=== PATIENT | female | born 1975 | race Caucasian/White ===

== ENCOUNTER 2024-08-15 09:44 | Emergency (ER) | payer MEDICAID ==
[~2024-08-15] VITALS: Ht 165.1 cm; Wt 54.5 kg
[2024-08-15 11:06] LABS: BASOPHILS # (AUTO) 0.1 X10'3 (0-0.2); EOSINOPHILS # (AUTO) 0.1 X10'3 (0-0.9); EOSINOPHILS % (AUTO) 1.1 % (0-6); HEMATOCRIT 28.2 % (35.0-45.0); HEMOGLOBIN 9.2 g/dl (12.0-16.0); LYMPHOCYTES # (AUTO) 1.5 X10'3 (1.1-4.8); LYMPHOCYTES % (AUTO) 18.4 % (21-51); MEAN CORPUSCULAR HEMOGLOBIN 32.3 PG (27.0-31.0); MEAN CORPUSCULAR HGB CONC 32.7 g/dL (33.0-36.5); MEAN CORPUSCULAR VOLUME 98.8 FL (78-98); MEAN PLATELET VOLUME 8.9 FL (7.4-10.4); MONOCYTES # (AUTO) 0.7 X10'3 (0-0.9); MONOCYTES % (AUTO) 8.7 % (2-12); NEUTROPHILS # (AUTO) 5.7 X10'3 (1.8-7.7); NEUTROPHILS % (AUTO) 70.8 % (42-75); PLATELET COUNT 285 X10'3 (140-440); RED BLOOD COUNT 2.85 X10'6 (4.20-5.60); RED CELL DISTRIBUTION WIDTH 16.6 % (11.5-14.5); WHITE BLOOD COUNT 8.1 X10'3 (4.5-11.0)
[2024-08-15 11:21] LABS: ALANINE AMINOTRANSFERASE 10 U/L (12-78); ALBUMIN 1.9 G/DL (3.4-5.0); ALBUMIN/GLOBULIN RATIO 0.4 (1.1-1.5); ALKALINE PHOSPHATASE 300 IU/L (46-116); ANION GAP 10 (8-16); ASPARTATE AMINO TRANSFERASE 67 U/L (10-37); BILIRUBIN,TOTAL 2.1 MG/DL (0.1-1.0); BLOOD UREA NITROGEN 5 MG/DL (7-18); BUN/CREATININE RATIO 6.4 (10.0-20.0); CALCIUM 7.9 MG/DL (8.5-10.1); CHLORIDE 105 MMOL/L (99-107); CREATININE 0.78 MG/DL (0.40-0.90); GLUCOSE 131 MG/DL (70-104); SODIUM 138 MMOL/L (135-145); TOTAL CARBON DIOXIDE 23.2 MMOL/L (24-32); TOTAL PROTEIN 6.8 G/DL (6.4-8.2); eCRCL 76 ML/MIN; eGFR 79 ML/MIN
[2024-08-15 11:27] LABS: POTASSIUM 2.9 MMOL/L (3.5-5.1)
[2024-08-15] MEDS: morphine 4 MG/ML inj SYRINge IV ONE (11:46)
[2024-08-15] MEDS: LIDOcaine 1% 30ml preserv. free vial SQ STA (13:05)
[2024-08-15 15:05] VITALS: BP 101/78; PULSE 107; RESP 14; TEMP 98; O2SAT 97
== END 2024-08-15 15:08 | disposition home or self-care (01) ==
LOC: ER 09:44
DX: R18.8 Other ascites (principal)
CPT/HCPCS: 36415; 49083; 80053; 82140; 85025; 96374; 99285; J2270

== ENCOUNTER 2024-08-18 12:10 | Emergency (ER) | payer MEDICAID ==
[2024-08-18 12:54] LABS: BASOPHILS # (AUTO) 0.1 X10'3 (0-0.2); BASOPHILS % (AUTO) 1.1 % (0-1); EOSINOPHILS # (AUTO) 0.1 X10'3 (0-0.9); EOSINOPHILS % (AUTO) 0.9 % (0-6); HEMATOCRIT 31.4 % (35.0-45.0); HEMOGLOBIN 10.2 g/dl (12.0-16.0); LYMPHOCYTES # (AUTO) 1.6 X10'3 (1.1-4.8); LYMPHOCYTES % (AUTO) 14.8 % (21-51); MEAN CORPUSCULAR HEMOGLOBIN 32.1 PG (27.0-31.0); MEAN CORPUSCULAR HGB CONC 32.6 g/dL (33.0-36.5); MEAN CORPUSCULAR VOLUME 98.5 FL (78-98); MEAN PLATELET VOLUME 8.8 FL (7.4-10.4); MONOCYTES # (AUTO) 0.9 X10'3 (0-0.9); MONOCYTES % (AUTO) 8.1 % (2-12); NEUTROPHILS # (AUTO) 8.2 X10'3 (1.8-7.7); NEUTROPHILS % (AUTO) 75.1 % (42-75); PLATELET COUNT 307 X10'3 (140-440); RED BLOOD COUNT 3.19 X10'6 (4.20-5.60); RED CELL DISTRIBUTION WIDTH 16.2 % (11.5-14.5); WHITE BLOOD COUNT 10.9 X10'3 (4.5-11.0)
[2024-08-18 13:13] LABS: ALANINE AMINOTRANSFERASE 17 U/L (12-78); ALBUMIN 2.1 G/DL (3.4-5.0); ALBUMIN/GLOBULIN RATIO 0.4 (1.1-1.5); ALKALINE PHOSPHATASE 357 IU/L (46-116); ANION GAP 10 (8-16); ASPARTATE AMINO TRANSFERASE 72 U/L (10-37); BILIRUBIN,TOTAL 2.4 MG/DL (0.1-1.0); BLOOD UREA NITROGEN 5 MG/DL (7-18); BUN/CREATININE RATIO 6.8 (10.0-20.0); CALCIUM 8.5 MG/DL (8.5-10.1); CHLORIDE 102 MMOL/L (99-107); CREATININE 0.73 MG/DL (0.40-0.90); ETHANOL < 10 MG/DL (<10); GLUCOSE 163 MG/DL (70-104); LIPASE 49 U/L (16-77); SODIUM 136 MMOL/L (135-145); TOTAL CARBON DIOXIDE 24.5 MMOL/L (24-32); TOTAL PROTEIN 7.4 G/DL (6.4-8.2); eGFR 85 ML/MIN
[2024-08-18 13:39] LABS: POTASSIUM 3.8 MMOL/L (3.5-5.1)
[2024-08-18] MEDS: LIDOcaine 1%/PF 5ML 10 MG/ML VIAL SQ ONE (13:52)
[2024-08-18] MEDS: LIDOcaine 1% 30ml preserv. free vial SQ STA (13:52)
[2024-08-18] MEDS: HYDROcodone/acetaminophen 5mg/325mg tablet PO ONE (14:36)
[2024-08-18 14:59] LABS: BILIRUBIN,URINE MODERATE (Neg); CLARITY,URINE CLEAR (Clear); COLOR,URINE AMBER (Yellow); GLUCOSE, URINE NEGATIVE (Neg); KETONES,URINE TRACE mg/dl (Neg); LEUKOCYTE ESTERASE ,URINE NEGATIVE (Neg); OCCULT BLOOD,URINE NEGATIVE (Neg); PROTEIN,URINE 30 mg/dl (Neg)
[2024-08-18 15:09] LABS: URINE AMPHETAMINE SCREEN POSITIVE (Neg); URINE BARBITUATE SCREEN NEGATIVE (Neg); URINE BENZODIAZEPINES SCREEN NEGATIVE (Neg); URINE CANNABINOID SCREEN NEGATIVE (Neg); URINE COCAINE SCREEN NEGATIVE (Neg); URINE METHADONE SCREEN NEGATIVE (Neg); URINE OPIATE SCREEN NEGATIVE (Neg); URINE PHENCYCLIDINE SCREEN NEGATIVE (Neg)
[2024-08-18 15:10] LABS: UA COLLECTION TYPE STRAIGHT CATH
[2024-08-18 15:11] LABS: NITRITES, URINE NEGATIVE (Neg)
[2024-08-18 15:13] LABS: BACTERIA,URINE FEW /HPF (Neg); RENAL CELLS, URINE FEW /HPF; SQUAMOUS EPITHELIAL CELL,UR FEW /LPF (FEW); TRANSITIONAL EPI CELLS,URINE FEW /HPF
[2024-08-18 15:48] LABS: GLUCOSE,BODY FLUID 167 MG/DL
[2024-08-18 16:12] LABS: BF RBC COUNT 249 /CU MM; BF WBC COUNT 105 /CU MM (0-1000); BFAPPEAR CLEAR; BFCOLOR YELLOW; BFSOURCE ASCITES FLD; BFVOLUME 16.5 ML
[2024-08-18 16:13] LABS: BF MESOTHELIAL CELLS MODERATE; LYMPHOCYTES,BODY FLUID 57 %; MONOCYTES,BODY FLUID 39 %; NEUTROPHILS,BODY FLUID 4 %
[2024-08-18 16:37] LABS: TOTAL PROTEIN,BODY FLUID < 2.0 G/DL
[2024-08-18] MEDS ORDERED: FURO-150 PO (16:38)
[2024-08-18] MEDS ORDERED: LACT10SO78 PO (16:38)
[2024-08-18] MEDS ORDERED: SPIR25TA5 PO (16:38)
[2024-08-18 17:26] VITALS: BP 103/50; PULSE 116; RESP 16; TEMP 97.2; O2SAT 98
== END 2024-08-18 17:29 | disposition home or self-care (01) ==
LOC: ER 12:11
DX: K70.31 Alcoholic cirrhosis of liver with ascites (principal)
CPT/HCPCS: 36415; 49082; 80053; 80305; 80320; 81001; 82945; 83605; 83690; 84145; 84157; 85025; 87040; 87070; 87088; 89051; 93005; 99285; A6449; C1758

== ENCOUNTER 2024-12-06 11:08 | Emergency (ER) | payer MEDICAID, OTHER ==
[~2024-12-06] VITALS: Ht 165.1 cm; Wt 45.5 kg
[~2024-12-06 11:08] MED LIST: FURO-150 PO; LACT10SO78 PO; SPIR25TA5 PO
[2024-12-06 11:15] VITALS: TEMP 98.3
[2024-12-06] MEDS ORDERED: HYDR-3686 PO (12:16)
[2024-12-06] MEDS ORDERED: GABA-530 PO (12:16)
[2024-12-06] MEDS ORDERED: TRAZ-251 PO (12:16)
[2024-12-06 13:31] LABS: BASOPHILS % (AUTO) 0.9 % (0-1); HEMATOCRIT 27.5 % (35.0-45.0); HEMOGLOBIN 8.7 g/dl (12.0-16.0); LYMPHOCYTES # (AUTO) 1.1 X10'3 (1.1-4.8); LYMPHOCYTES % (AUTO) 23.5 % (21-51); MEAN CORPUSCULAR HGB CONC 31.6 g/dL (33.0-36.5); MEAN CORPUSCULAR VOLUME 79.2 FL (78-98); MONOCYTES # (AUTO) 0.4 X10'3 (0-0.9); MONOCYTES % (AUTO) 9.1 % (2-12); NEUTROPHILS % (AUTO) 65.5 % (42-75); PLATELET COUNT 126 X10'3 (140-440); RED BLOOD COUNT 3.47 X10'6 (4.20-5.60); RED CELL DISTRIBUTION WIDTH 17.1 % (11.5-14.5); WHITE BLOOD COUNT 4.6 X10'3 (4.5-11.0)
[2024-12-06 13:49] LABS: ALANINE AMINOTRANSFERASE 19 U/L (12-78); ALBUMIN 2.7 G/DL (3.4-5.0); ALBUMIN/GLOBULIN RATIO 0.6 (1.1-1.5); ALKALINE PHOSPHATASE 185 IU/L (46-116); ANION GAP 9 (8-16); ASPARTATE AMINO TRANSFERASE 27 U/L (10-37); BILIRUBIN,TOTAL 0.8 MG/DL (0.1-1.0); BLOOD UREA NITROGEN 7 MG/DL (7-18); BUN/CREATININE RATIO 9.3 (10.0-20.0); CALCIUM 8.4 MG/DL (8.5-10.1); CHLORIDE 95 MMOL/L (99-107); CREATININE 0.75 MG/DL (0.40-0.90); LIPASE 86 U/L (16-77); POTASSIUM 4.2 MMOL/L (3.5-5.1); SODIUM 130 MMOL/L (135-145); TOTAL CARBON DIOXIDE 25.8 MMOL/L (24-32); TOTAL PROTEIN 7.1 G/DL (6.4-8.2); eCRCL 66 ML/MIN; eGFR 82 ML/MIN
[2024-12-06 13:51] LABS: GLUCOSE 594 MG/DL (70-104)
[2024-12-06 14:03] LABS: ANISOCYTOSIS 1+; HYPOCHROMASIA 1+; MICROCYTOSIS 1+; PLATELET ESTIMATE DECREASED
[2024-12-06 14:07] LABS: BILIRUBIN,URINE NEGATIVE (Neg); CLARITY,URINE CLEAR (Clear); COLOR,URINE YELLOW (Yellow); GLUCOSE, URINE >=1000 mg/dl (Neg); KETONES,URINE NEGATIVE (Neg); LEUKOCYTE ESTERASE ,URINE NEGATIVE (Neg); NITRITES, URINE NEGATIVE (Neg); OCCULT BLOOD,URINE NEGATIVE (Neg); PROTEIN,URINE NEGATIVE (Neg); UROBILINOGEN,URINE 0.2 E.U/dL (0.2-1.0)
[2024-12-06 14:11] LABS: UA COLLECTION TYPE CLN CATCH MIDSTREAM; URINE HCG NEGATIVE (NEG)
[2024-12-06 14:17] LABS: BACTERIA,URINE FEW /HPF (Neg); RENAL CELLS, URINE FEW /HPF; SQUAMOUS EPITHELIAL CELL,UR FEW /LPF (FEW); TRANSITIONAL EPI CELLS,URINE FEW /HPF
[2024-12-06 14:18] LABS: YEAST MODERATE /HPF (NEGATIVE)
[2024-12-06] MEDS ORDERED: iohexol 300mg/ml 100ml inj. ONE (14:18)
[2024-12-06 18:02] VITALS: BP 119/77; PULSE 83; RESP 16; O2SAT 95
== END 2024-12-06 18:04 | disposition home or self-care (01) ==
LOC: ER 11:09
DX: R10.84 Generalized abdominal pain (principal); R73.9 Hyperglycemia, unspecified
CPT/HCPCS: 36415; 74177; 80053; 81001; 81025; 82948; 83690; 85008; 85025; 87088; 99285; J7030; Q9967

== ENCOUNTER 2025-01-25 09:01 | Emergency (ER) | payer MEDICAID ==
[~2025-01-25] VITALS: Ht 167.6 cm; Wt 55.0 kg
[~2025-01-25 09:01] MED LIST changes: +GABA-530 PO; +HYDR-3686 PO; +TRAZ-251 PO
--- NOTE | 2025-01-25 10:23 | Physician Documentation ---
History of Present Illness Chief Complaint: Abdominal Pain Stated Complaint: ABD PAIN Time Seen by MD: 09:43 Primary Medical Doctor: JEROME Mode of Arrival: EMS HPI 49-year-old female presenting with abdominal pain for the past week. Patient states that the pain has gradually been worsening. It is now very severe. Pain is centered around her umbilicus and radiates diffusely. She states that she feels like her stomach has become slightly swollen as well and any type of touch to the stomach is very painful. Additionally she states she has been nauseated and has vomited on several times producing nonbloody emesis. She has also had several bouts of nonbloody diarrhea. 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 She has a history of methamphetamine use as well but states that she also quit that three months ago. She denies any fever, chills or any other associated symptoms. She reports that she had recently a bout of intra- abdominal bleeding where she was hospitalized and then sent to a rehab facility. Medication Reconciliation Allergies: Coded Allergies: No Known Allergies (Unverified , 01/25/25) Scheduled Furosemide (Lasix), 20 MG PO DAILY Gabapentin (Gabapentin), 1 CAP PO TID, (Reported) Lactulose (Lactulose), 30 ML PO Q12H Spironolactone (Spironolactone), 25 MG PO DAILY Trazodone HCl (Trazodone HCl), 1 TAB PO HS, (Reported) Scheduled PRN Hydroxyzine Hcl* (Atarax*), 1 TAB PO TID PRN for anxiety, (Reported) Past Medical History Past Medical History: Cirrohsis Review of Systems All Other Systems at this time: Reviewed and Negative Physical Exam Vital Signs: Temperature: 98.0, Source: Oral, Heart Rate: 84, Respiratory Rate: 10, BP: 106/76, Pulse Oximetry: 100, Weight: 55.000 Oxygen Flow Rate: 0 Physical Exam I have reviewed the triage vitals. CONST: Well developed and well nourished. In no acute distress HENT: Head Atraumatic EYES: Pupils are equal, round and reactive to light. Normal conjunctiva NECK: Normal range of motion. Supple. CARDIO: Normal rate and regular rhythm. No murmurs, rubs, or gallops. S1, S2. PULM/CHEST: No respiratory distress. Lungs clear to auscultation. No wheeze ABD: Soft, diffusely tender to palpation, positive guarding, positive rebound tenderness. : Exam deferred MSK: No edema. No deformity. NEURO: Alert and oriented to person, place and time. Moving all extremities SKIN: Warm and dry. PSYCH: Normal mood and affect. Good eye contact. Progress Results/Orders Results/Orders Orders - CHIQUIS CHILD MD Electrocardiogram (01/25/25 10:17) Type And Screen (01/25/25 10:17) Cbc/Diff (01/25/25 10:17) CK (01/25/25 10:17) Lipase (01/25/25 10:17) Pt Inr (01/25/25 10:17) PTT (01/25/25 10:17) Culture Blood (01/25/25 10:17) Urinalysis, Cult If Indicated (01/25/25 10:17) Chest,Single View (01/25/25 10:17) PBNP (01/25/25 10:17) MG (01/25/25 10:17) Normal Saline (01/25/25 10:20) Vital Signs 01/25/25 01/25/25 01/25/25 01/25/25 09:03 09:12 09:22 10:11 Temp 98.0 Pulse 82 81 84 Resp 12 14 14 10 B/P (MAP) 106/74 112/73 (86) 106/76 (86) Pulse Ox 99 100 100 O2 Flow Rate 0 0 0 EKG/XRAY/CT/US/VASC/MRI EKG : Additional Comment EKG interpreted by KE Child shows normal sinus rhythm at a rate of 74, normal axis, no VA intervals. No ischemia Chest X-Ray : Additional Comments EXAM: DI CHEST,SINGLE VIEW Indication: abd pain Technique: Single frontal view of the chest was obtained Comparison: None FINDINGS: Lines and Tubes: None Lungs: No focal consolidation. Pleura: No effusion. No pneumothorax. Cardiomediastinal contours: Unremarkable Bones: No acute osseous abnormality. IMPRESSION: No acute cardiopulmonary disease. : Impression CT ABDOMEN AND PELVIS WITHOUT CONTRAST CLINICAL HISTORY: diffuse abd pain TECHNIQUE: Multiple contiguous axial images of the abdomen and pelvis without intravenous contrast. The images were reformatted degenerate coronal and sagittal reconstructions. All CT scans at this medical facility are performed using dose modulation t echniques as appropriate to a performed exam including the following:Automated exposure control was utilized; adjustment of the MA and/or KV according to patient size; and use of iterative reconstruction technique. Radiation Dose Information: CT Dose: CTDI volume is 7 mGy. Dose-length product is 346 mGy*cm Comparison: CT CT ABDOMEN PELVIS W/ IV CONTRAST on DOS: 12/06/24 FINDINGS: Evaluation of the abdomen and pelvis is limited without intravenous contrast. The liver again demonstrates nodular surface contour suggestive of hepatic cirrhosis. There is no discrete hepatic lesion or masslike area identified on the current noncontrast CT. There are again paraesophageal and perigastric varices. There is perihepatic and perisplenic ascites. There is a stable mildly prominent size spleen. There are multiple scattered calcifications throughout the pancreas with pancreatic ductal dilatation. The gallbladder, kidneys, and adrenal glands, appear within normal limits. There is no free air. The stomach grossly appears unremarkable. The small and large bowel loops demonstrate normal caliber and distribution. There is moderate amount of stool in the colon. There are diverticula in the distal colon without evidence of acute diverticulitis. A normal appearing appendix is seen in the right lower quadrant abdomen. The abdominal aorta and IVC appear within normal limits. The bladder appears unremarkable for the degree of distention. Uterus is surgically absent.. There is no gross evidence of a pelvic mass. There is small amount of free fluid in the pelvis. Lung bases are clear. There is no acute osseous abnormality. IMPRESSION: 1. The liver again demonstrates cirrhotic morphology. There is no discrete hepatic lesion or masslike area identified on the current noncontrast CT. 2. Redemonstrated are changes of portal hypertension with splenomegaly and paraesophageal and perigastric varices. 3. Stable changes of chronic pancreatitis. 4. Moderate amount of stool in the colon. Departure Disposition: 01 HOME / SELF CARE / HOMELESS Impression: Primary Impression: Cirrhosis of liver Additional Impression: Abdominal pain Condition: Improved Discharge Instructions: Cirrhosis Referrals: NO PRIMARY CARE PROVIDER (PCP) Comments Monitor symptoms for improvement and resolution, Follow up with PCP in the next 2-3 days. Return to the ED with any worsening symptoms CHIQUIS CHILD MD Jan 25, 2025 10:23
--- NOTE | 2025-01-25 10:27 | ELECTROCARDIOGRAPH REPORT ---
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 Santiago Mallory Measurements Intervals [place] Rate: 74 P: 40 AR: 160 QRS: 64 QRSD: 92 T: 41 QT: 401 QTc: 445 Interpretive Statements Sinus rhythm Low voltage, extremity and precordial leads Electronically Signed On 01-25-2025 19:21:[address] Santiago Mallory Please click the below link to view image of tracing.
[2025-01-25] MEDS: normal saline 1000ML IV soln IVB ONE (10:39)
[2025-01-25] MEDS: morphine 4 MG/ML inj SYRINge IV ONE (10:39)
[2025-01-25] MEDS: ondansetron/PF 4mg/2ml inj IV ONE (10:39)
[2025-01-25 10:45] LABS: BILIRUBIN,URINE NEGATIVE (Neg); CLARITY,URINE CLEAR (Clear); COLOR,URINE YELLOW (Yellow); GLUCOSE, URINE >=1000 mg/dl (Neg); KETONES,URINE NEGATIVE (Neg); LEUKOCYTE ESTERASE ,URINE NEGATIVE (Neg); OCCULT BLOOD,URINE NEGATIVE (Neg); PROTEIN,URINE NEGATIVE (Neg); UROBILINOGEN,URINE 0.2 E.U/dL (0.2-1.0)
[2025-01-25 10:56] LABS: NITRITES, URINE NEGATIVE (Neg); UA COLLECTION TYPE CLN CATCH MIDSTREAM
[2025-01-25 10:59] LABS: BACTERIA,URINE FEW /HPF (Neg); MUCUS STRANDS NONE SEEN /LPF (Neg); RBC,URINE NONE SEEN /HPF (0-2); SQUAMOUS EPITHELIAL CELL,UR MODERATE /LPF (FEW); WBC,URINE 0-4 /HPF (0-4)
[2025-01-25 11:10] LABS: BASOPHILS # (AUTO) 0.1 X10'3 (0-0.2); BASOPHILS % (AUTO) 1.2 % (0-1); EOSINOPHILS # (AUTO) 0.1 X10'3 (0-0.9); EOSINOPHILS % (AUTO) 1.7 % (0-6); HEMATOCRIT 31.3 % (35.0-45.0); HEMOGLOBIN 10.3 g/dl (12.0-16.0); LYMPHOCYTES # (AUTO) 1.4 X10'3 (1.1-4.8); LYMPHOCYTES % (AUTO) 34.6 % (21-51); MEAN CORPUSCULAR HEMOGLOBIN 25.4 PG (27.0-31.0); MEAN PLATELET VOLUME 8.5 FL (7.4-10.4); MONOCYTES # (AUTO) 0.4 X10'3 (0-0.9); MONOCYTES % (AUTO) 10.2 % (2-12); NEUTROPHILS # (AUTO) 2.2 X10'3 (1.8-7.7); NEUTROPHILS % (AUTO) 52.3 % (42-75); PLATELET COUNT 132 X10'3 (140-440); RED BLOOD COUNT 4.07 X10'6 (4.20-5.60); RED CELL DISTRIBUTION WIDTH 21.8 % (11.5-14.5); WHITE BLOOD COUNT 4.1 X10'3 (4.5-11.0)
--- NOTE | 2025-01-25 11:32 | RADIOLOGY REPORT ---
EXAM: DI CHEST,SINGLE VIEW Indication: abd pain Technique: Single frontal view of the chest was obtained Comparison: None FINDINGS: Lines and Tubes: None Lungs: No focal consolidation. Pleura: No effusion. No pneumothorax. Cardiomediastinal contours: Unremarkable Bones: No acute osseous abnormality. IMPRESSION: No acute cardiopulmonary disease.
[2025-01-25 11:35] LABS: ANISOCYTOSIS 3+; MICROCYTOSIS 1+; PLATELET ESTIMATE DECREASED
[2025-01-25 11:37] LABS: APTT 30 SECONDS (22-32); INR 1.2 INR; PROTHROMBIN TIME 12.4 SECONDS (9.0-12.0)
--- NOTE | 2025-01-25 11:37 | RADIOLOGY REPORT ---
CT ABDOMEN AND PELVIS WITHOUT CONTRAST CLINICAL HISTORY: diffuse abd pain TECHNIQUE: Multiple contiguous axial images of the abdomen and pelvis without intravenous contrast. T he images were reformatted degenerate coronal and sagittal reconstructions. All CT scans at this medical facility are performed using dose modulation techniques as appropriate t o a performed exam including the following:Automated exposure control was utilized; adjustment of the MA and/or KV according to patient size; and use of iterative reconstruction technique. Radiation Dose Information: CT Dose: CTDI volume is 7 mGy. Dose-length product is 346 mGy*cm Comparison: CT CT ABDOMEN PELVIS W/ IV CONTRAST on DOS: 12/06/24 FINDINGS: Evaluation of the abdomen and pelvis is limited without intravenous contrast. The liver again demonstrates nodular surface contour suggestive of hepatic cirrhosis. There is no dis crete hepatic lesion or masslike area identified on the current noncontrast CT. There are again parae sophageal and perigastric varices. There is perihepatic and perisplenic ascites. There is a stable mildly prominent size spleen. There are multiple scattered calcifications throughou t the pancreas with pancreatic ductal dilatation. The gallbladder, kidneys, and adrenal glands, appear within normal limits. There is no free ai r. The stomach grossly appears unremarkable. The small and large bowel loops demonstrate normal caliber and distribution. There is moderate amount of stool in the colon. There are diverticula in the dista l colon without evidence of acute diverticulitis. A normal appearing appendix is seen in the right lo wer quadrant abdomen. The abdominal aorta and IVC appear within normal limits. The bladder appears unremarkable for the degree of distention. Uterus is surgically absent.. There i s no gross evidence of a pelvic mass. There is small amount of free fluid in the pelvis. Lung bases are clear. There is no acute osseous abnormality. IMPRESSION: 1. The liver again demonstrates cirrhotic morphology. There is no discrete hepatic lesion or masslike area identified on the current noncontrast CT. 2. Redemonstrated are changes of portal hypertension with splenomegaly and paraesophageal and perigas tric varices. 3. Stable changes of chronic pancreatitis. 4. Moderate amount of stool in the colon. HS:Y
[2025-01-25 11:46] LABS: ALANINE AMINOTRANSFERASE 17 U/L (12-78); ALBUMIN 3.3 G/DL (3.4-5.0); ALBUMIN/GLOBULIN RATIO 0.8 (1.1-1.5); ALKALINE PHOSPHATASE 183 IU/L (46-116); ANION GAP 8 (8-16); ASPARTATE AMINO TRANSFERASE 19 U/L (10-37); BILIRUBIN,TOTAL 0.8 MG/DL (0.1-1.0); BLOOD UREA NITROGEN 8 MG/DL (7-18); BUN/CREATININE RATIO 11.8 (10.0-20.0); CALCIUM 9.4 MG/DL (8.5-10.1); CHLORIDE 104 MMOL/L (99-107); CREATINE KINASE 47 U/L (26-192); CREATININE 0.68 MG/DL (0.40-0.90); LIPASE 72 U/L (16-77); MAGNESIUM 1.4 MG/DL (1.5-2.4); POTASSIUM 3.7 MMOL/L (3.5-5.1); PRO BRAIN NATRIURETIC PEPTIDE < 30 PG/ML (0-125); SODIUM 135 MMOL/L (135-145); TOTAL CARBON DIOXIDE 22.8 MMOL/L (24-32); TOTAL PROTEIN 7.4 G/DL (6.4-8.2); eCRCL 88 ML/MIN; eGFR > 90 ML/MIN
[2025-01-25 11:48] LABS: GLUCOSE 431 MG/DL (70-104)
[2025-01-25] MEDS: insulin regular, human 10 units/0.1 ml syringe IV ONE (14:10)
[2025-01-25] MEDS: potassium Cl 20 mEq SR tablet PO STA (14:48)
[2025-01-25] MEDS: normal saline 1000ml 1,000 ML IV ONE (15:43)
[2025-01-25 18:11] VITALS: BP 101/65; PULSE 67; RESP 12; TEMP 98; O2SAT 100
== END 2025-01-25 18:05 | disposition home or self-care (01) ==
LOC: ER 09:01
DX: K74.60 Unspecified cirrhosis of liver (principal)
CPT/HCPCS: 36415; 71045; 74176; 80053; 81001; 82550; 82948; 83605; 83690; 83735; 83880; 84484; 85025; 85610; 85730; 86885; 86900; 86901; 87040; 93005; 96361; 96374; 96375; 99285; J2270; J2405; J7030; 85008

== ENCOUNTER 2025-02-11 12:33 | Emergency (ER) | payer MEDICAID ==
[~2025-02-11] VITALS: Ht 167.6 cm; Wt 72.5 kg
[2025-02-11 12:37] VITALS: TEMP 98.3
[2025-02-11 13:16] LABS: BASOPHILS % (AUTO) 1.3 % (0-1); EOSINOPHILS # (AUTO) 0.1 X10'3 (0-0.9); EOSINOPHILS % (AUTO) 1.4 % (0-6); HEMATOCRIT 31.4 % (35.0-45.0); HEMOGLOBIN 10.3 g/dl (12.0-16.0); LYMPHOCYTES # (AUTO) 0.9 X10'3 (1.1-4.8); LYMPHOCYTES % (AUTO) 23.6 % (21-51); MEAN CORPUSCULAR HEMOGLOBIN 25.3 PG (27.0-31.0); MEAN CORPUSCULAR HGB CONC 32.7 g/dL (33.0-36.5); MEAN CORPUSCULAR VOLUME 77.5 FL (78-98); MEAN PLATELET VOLUME 8.7 FL (7.4-10.4); MONOCYTES # (AUTO) 0.5 X10'3 (0-0.9); MONOCYTES % (AUTO) 13.7 % (2-12); NEUTROPHILS # (AUTO) 2.3 X10'3 (1.8-7.7); PLATELET COUNT 137 X10'3 (140-440); RED BLOOD COUNT 4.06 X10'6 (4.20-5.60); RED CELL DISTRIBUTION WIDTH 20.6 % (11.5-14.5); WHITE BLOOD COUNT 3.8 X10'3 (4.5-11.0)
[2025-02-11 13:22] LABS: BILIRUBIN,URINE NEGATIVE (Neg); CLARITY,URINE CLEAR (Clear); COLOR,URINE YELLOW (Yellow); GLUCOSE, URINE >=1000 mg/dl (Neg); KETONES,URINE NEGATIVE (Neg); LEUKOCYTE ESTERASE ,URINE NEGATIVE (Neg); NITRITES, URINE NEGATIVE (Neg); OCCULT BLOOD,URINE NEGATIVE (Neg); PROTEIN,URINE NEGATIVE (Neg); UROBILINOGEN,URINE 0.2 E.U/dL (0.2-1.0)
[2025-02-11 13:23] LABS: UA COLLECTION TYPE NON-SPECIFIED
[2025-02-11 13:37] LABS: BACTERIA,URINE NONE SEEN /HPF (Neg); MUCUS STRANDS FEW /LPF (Neg); SQUAMOUS EPITHELIAL CELL,UR FEW /LPF (FEW); WBC,URINE 0-4 /HPF (0-4)
[2025-02-11 13:39] LABS: ALANINE AMINOTRANSFERASE 21 U/L (12-78); ALBUMIN 3.3 G/DL (3.4-5.0); ALBUMIN/GLOBULIN RATIO 0.8 (1.1-1.5); ALKALINE PHOSPHATASE 155 IU/L (46-116); ANION GAP 6 (8-16); ASPARTATE AMINO TRANSFERASE 24 U/L (10-37); BILIRUBIN,TOTAL 0.9 MG/DL (0.1-1.0); BLOOD UREA NITROGEN 9 MG/DL (7-18); BUN/CREATININE RATIO 9.7 (10.0-20.0); CALCIUM 8.9 MG/DL (8.5-10.1); CHLORIDE 100 MMOL/L (99-107); CREATININE 0.93 MG/DL (0.40-0.90); SODIUM 133 MMOL/L (135-145); TOTAL PROTEIN 7.3 G/DL (6.4-8.2); eCRCL 69 ML/MIN; eGFR 64 ML/MIN
[2025-02-11 13:41] LABS: ANISOCYTOSIS 3+; HYPOCHROMASIA 1+; MICROCYTOSIS 1+; PLATELET ESTIMATE DECREASED
[2025-02-11 13:42] LABS: ELLIPTOCYTES 1+; GLUCOSE 563 MG/DL (70-104)
--- NOTE | 2025-02-11 15:23 | Physician Documentation ---
History of Present Illness ~ Chief Complaint: Weakness Stated Complaint: HYPERGLYCEMIA Time Seen by MD: 14:16 OK to notify your PCP?: Yes Primary Medical Doctor: JEROME Source: patient Mode of Arrival: EMS Exam Limitations: no limitations HPI 49-year-old female who is here due to right ear pain which worsened over the past few days. She states she has already been seen for this but was not given any antibiotics or pain medication in his requesting some pain medication for this. She states they told her it was wax in her ear but she states she has had problems with infections in her ear all her life and she feels that it is more than just wax in her ear she is concerned there was an infection behind the wax. Patient's denies any fever, chills. Patient also reports ongoing pain in her stomach but states this is unchanged from her baseline. Patient then adds but right now my stomach actually isn't that bad. Patient states all the medications you give me for pain do not work. 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 Medication Reconciliation Allergies: Coded Allergies: No Known Allergies (Unverified , 02/11/25) Scheduled Furosemide (Lasix), 20 MG PO DAILY Gabapentin (Gabapentin), 1 CAP PO TID, (Reported) Lactulose (Lactulose), 30 ML PO Q12H Spironolactone (Spironolactone), 25 MG PO DAILY Trazodone HCl (Trazodone HCl), 1 TAB PO HS, (Reported) Scheduled PRN Hydroxyzine Hcl* (Atarax*), 1 TAB PO TID PRN for anxiety, (Reported) Past Medical History Past Medical History: Cirrohsis Review of Systems All Other Systems at this time: Reviewed and Negative Physical Exam Vital Signs: Temperature: 98.3, Source: Oral, Heart Rate: 75, Respiratory Rate: 20, BP: 109/75, Pulse Oximetry: 98, Weight: 72.500 Oxygen Flow Rate: 0 Physical Exam GENERAL: Alert, no acute distress. HEENT: NCAT, EOMI, PERRL, right ear canal occluded with cerumen surrounding the cerumen I am able to appreciate some erythema of the canal, pain with traction of the pinna reported, no tenderness at mastoid. Numerous missing teeth otherwise normal oropharynx, moist oral mucosa. NECK: Supple, trachea midline. No cervical lymphadenopathy CARDIAC: Regular rate and rhythm, no murmurs, rubs, or gallops. Equal distal pulses. No lower extremity edema, cap refill less than 2 seconds. RESPIRATORY: Equal breath sounds, clear to auscultation bilaterally, no respiratory distress. GASTROINTESTINAL: Positive fluid wave consistent with ascites but no tenderness or peritoneal signs no guarding or rebound. MUSCULOSKELETAL: Normal range of motion, nontender, no swelling. Normal gait. NEUROLOGICAL: Awake, alert, and oriented x 3. SKIN: Warm/dry, no pallor, no rash. PSYCH: Alert and appropriate. Affect congruent with mood. Speech is clear. Good eye contact. Progress Results/Orders Results/Orders Completed Orders - MEHRAN GILBERT Normal Saline 1000ml (Sodium Chloride 10 (02/11/25 15:10) Tramadol Tablet (Ultram Tablet) (02/11/25 15:10) Amoxicillin Capsule (Trimox Capsule) (02/11/25 15:10) Vital Signs 02/11/25 02/11/25 02/11/25 12:37 13:35 15:02 Temp 98.3 Pulse 82 75 Resp 16 20 B/P (MAP) 105/72 109/75 (86) Pulse Ox 100 98 O2 Flow Rate 0 0 Laboratory Tests Test 02/11/25 12:56 02/11/25 13:02 02/11/25 13:07 Glucometer 592 *H Urine Specimen Description Non-specified Urine Color Yellow Urine Clarity Clear Urine pH 6.0 Urine Specific Gilliam <=1.005 Urine Protein Negative Urine Glucose (UA) >=1000 H Urine Ketones Negative Urine Occult Blood Negative Urine Nitrite Negative Urine Bilirubin Negative Urine Urobilinogen 0.2 Urine Leukocyte Esterase Negative Urine RBC 3-10 Urine WBC 0-4 Urine Squamous Epithelial Cells Few Urine Bacteria None seen Urine Mucus Few Volume Urine Centrifuged 10 ml Urine Comment White Blood Count 3.8 L Red Blood Count 4.06 L Hemoglobin 10.3 L Hematocrit 31.4 L Mean Corpuscular Volume 77.5 L Mean Corpuscular Hemoglobin 25.3 L Mean Corpuscular Hemoglobin Concent 32.7 L Red Cell Distribution Width 20.6 H Platelet Count 137 L Mean Platelet Volume 8.7 Neutrophils (%) (Auto) 60.0 Lymphocytes (%) (Auto) 23.6 Monocytes (%) (Auto) 13.7 H Eosinophils (%) (Auto) 1.4 Basophils (%) (Auto) 1.3 H Neutrophils # (Auto) 2.3 Lymphocytes # (Auto) 0.9 L Monocytes # (Auto) 0.5 Eosinophils # (Auto) 0.1 Basophils # (Auto) 0.0 CBC Comment Platelet Estimate Decreased Red Blood Cell Morphology Perf Hypochromasia 1+ Basophilic Stippling Anisocytosis 3+ Microcytosis 1+ Elliptocytes 1+ Sodium Level 133 L Potassium Level 4.0 Chloride Level 100 Carbon Dioxide Level 27.0 Anion Gap 6 L Blood Urea Nitrogen 9 Creatinine 0.93 H Estimated GFR/1.73 m2 64 BUN/Creatinine Ratio 9.7 L Glucose Level 563 *H Calcium Level 8.9 Total Bilirubin 0.9 Aspartate Amino Transf (AST/SGOT) 24 Alanine Aminotransferase (ALT/SGPT) 21 Alkaline Phosphatase 155 H Total Protein 7.3 Albumin 3.3 L Globulin 4.0 Albumin/Globulin Ratio 0.8 L Chemistry Comments Medical Decision Making Differential Dx:Considerations: Include: anemia, CVA, dehydration, dysrhythmia, electrolyte imbalance, encephalopathy, Guillain-Eagle, hypoglycemia, hypotension, hypovolemia, labyrinthitis, Meniere's disease, myasathenia gravis, myocardial infarction, pulmonary embolus, renal failure, respiratory failure, TIA, VBI, vertigo central, vertigo peripheral, vestibular neuronitis Additional Information Labs are at baseline, no peritoneal signs, afebrile. Patient's abdominal pain is improved from her baseline and without red flag signs on exam without wbc or any other concerning findings not consistent with SBP. 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 It does appear that you have possibly an infected ear behind the cerumen which is why covered you with antibiotics today. It is generally not recommended to irrigate cerumen from an ear when you suspect that there is infection behind the cerumen due to causing more pain. Follow up with your primary care provider next week and they can attempt that ear lavage for you after you have been on antibiotics for several days. For your chronic abdominal pain of unclear etiology your labs are all at your baseline no white count your anemia is stable and you report that your abdominal pain was actually a little better thus we did not investigate this further. For this chronic abdominal pain this needs to be managed by your primary care provider, but if you have any new urgent concerns or complaints return to the ER. Referrals: NO PRIMARY CARE PROVIDER (PCP) Prescriptions Tramadol HCl (Tramadol HCl) 50 Mg Tablet 1 TAB PO TID PRN PRN for pain for 2 Days, #6 TAB dx: ear pain otitis media H92.09 Prov: MEHRAN GILBERT 02/11/25 Amoxicillin Trihydrate* (Amoxicillin*) 500 Mg Capsule 1 CAP PO Q8H for 7 Days, #21 CAP Prov: MEHRAN GILBERT 02/11/25 Education Educated: Patient Educated regarding: diagnosis, treatment, need for follow up Signature Scribe Signature: x Attestation: MEHRAN Parrish February 11, 2025 15:23
[2025-02-11] MEDS ORDERED: AMOX500C2 PO (15:25)
[2025-02-11] MEDS ORDERED: TRAM50TA2 PO (15:25)
[2025-02-11] MEDS: normal saline 1000ML IV soln IVB ONE (15:40)
[2025-02-11] MEDS: traMADol 50MG tablet PO ONE (15:40)
[2025-02-11] MEDS: amoxicillin 250mg capsule PO ONE (15:41)
[2025-02-11 15:46] VITALS: BP 110/75; PULSE 77; RESP 18; O2SAT 99
== END 2025-02-11 16:43 | disposition home or self-care (01) ==
LOC: ER 12:34
DX: K70.31 Alcoholic cirrhosis of liver with ascites (principal); H66.91 Otitis media, unspecified, right ear; H61.21 Impacted cerumen, right ear; Z79.899 Other long term (current) drug therapy
CPT/HCPCS: 36415; 80053; 81001; 82948; 85008; 85025; 96360; 99284; J7030; 96361

== ENCOUNTER 2025-03-05 12:08 | Inpatient (IN) | payer MEDICAID ==
[~2025-03-05] VITALS: Ht 167.6 cm; Wt 48.2 kg
--- NOTE | 2025-03-05 12:55 | RADIOLOGY REPORT ---
EXAM: DI CHEST,SINGLE VIEW HISTORY: FEVER COMPARISON: DI CHEST,SINGLE VIEW on DOS: 01/25/25 TECHNIQUE: Portable upright AP view of the chest was performed. FINDINGS: No pneumothorax, consolidative infiltrates, or pulmonary edema. The heart is not enlarged. No fractur es are identified about the bony thorax. IMPRESSION: No acute intrathoracic process.
[2025-03-05 13:40] LABS: BASOPHILS % (AUTO) 0.8 % (0-1); EOSINOPHILS % (AUTO) 0.1 % (0-6); HEMATOCRIT 36.7 % (35.0-45.0); HEMOGLOBIN 12.1 g/dl (12.0-16.0); LYMPHOCYTES # (AUTO) 0.6 X10'3 (1.1-4.8); LYMPHOCYTES % (AUTO) 10.4 % (21-51); MEAN CORPUSCULAR HEMOGLOBIN 25.8 PG (27.0-31.0); MEAN CORPUSCULAR VOLUME 78.2 FL (78-98); MEAN PLATELET VOLUME 9.4 FL (7.4-10.4); MONOCYTES # (AUTO) 0.3 X10'3 (0-0.9); MONOCYTES % (AUTO) 5.6 % (2-12); NEUTROPHILS # (AUTO) 4.6 X10'3 (1.8-7.7); NEUTROPHILS % (AUTO) 83.1 % (42-75); PLATELET COUNT 121 X10'3 (140-440); RED BLOOD COUNT 4.69 X10'6 (4.20-5.60); RED CELL DISTRIBUTION WIDTH 18.4 % (11.5-14.5); WHITE BLOOD COUNT 5.5 X10'3 (4.5-11.0)
[2025-03-05] MEDS: ondansetron/PF 4mg/2ml inj IV ONE (13:44)
[2025-03-05] MEDS: normal saline 1000ml 1,000 ML IV ONE (13:44)
[2025-03-05] MEDS: acetaminophen 325mg tablet PO ONE (13:44)
[2025-03-05] MEDS: morphine 2 MG/ML inj. syringe IV ONE (13:44)
[2025-03-05 13:51] LABS: ALBUMIN 3.2 G/DL (3.4-5.0); ANION GAP 12 (8-16); BLOOD UREA NITROGEN 7 MG/DL (7-18); BUN/CREATININE RATIO 6.8 (10.0-20.0); CHLORIDE 99 MMOL/L (99-107); CREATININE 1.03 MG/DL (0.40-0.90); GLUCOSE 339 MG/DL (70-104); POTASSIUM 3.9 MMOL/L (3.5-5.1); SODIUM 134 MMOL/L (135-145); TOTAL CARBON DIOXIDE 23.5 MMOL/L (24-32); eCRCL 51 ML/MIN; eGFR 57 ML/MIN
--- NOTE | 2025-03-05 14:54 | Physician Documentation ---
History of Present Illness ~ General Chief Complaint: General Stated Complaint: N/V Time Seen by MD: 14:52 OK to notify your PCP?: Yes Primary Medical Doctor: JEROME Source: patient, RN/MD, EMS, RN notes reviewed, EMS notes reviewed, old records Mode of Arrival: EMS Exam Limitations: no limitations History of Present Illness Initial Comments 49 year old female with history of cirrhosis presents to the emergency department for complaints of abdominal pain. She states that she has been vomiting and experiencing diarrhea that began last night. She states she was recently exposed to her grandson who has been sick recently. Of note patient sees Dr. Ramirez who follows her primary care and she sees a liver specialist in [facility]. She states she has been sober for six month s. Patient denies any other associated symptoms at this time. Patient denies any other alleviating or exacerbating factors. Medication Reconciliation Allergies: Coded Allergies: No Known Allergies (Unverified , 03/05/25) Scheduled Furosemide (Lasix), 20 MG PO DAILY Gabapentin (Gabapentin), 1 CAP PO TID, (Reported) Lactulose (Lactulose), 30 ML PO Q12H Spironolactone (Spironolactone), 25 MG PO DAILY Trazodone HCl (Trazodone HCl), 1 TAB PO HS, (Reported) Scheduled PRN Hydroxyzine Hcl* (Atarax*), 1 TAB PO TID PRN for anxiety, (Reported) Past Medical History Past Medical History: Cirrohsis Review of Systems All Other Systems at this time: Reviewed and Negative ROS As stated above in the HPI, otherwise all systems are reviewed and negative. Physical Exam Physical Exam Vital Signs: RN Vital Signs have been reviewed: Yes, Temperature: 100.2, Source: Oral, Heart Rate: 107, Respiratory Rate: 13, BP: 102/64, Pulse Oximetry: 97, Weight: 48.180 Oxygen Flow Rate: 0 Pulse Oximetry Reflects: adequate oxygenation Physical Exam General: The patient is well developed, well nourished, nontoxic appearing and is in no acute distress. Skin: [place], warm and dry with no rashes. HEENT: Head was normocephalic and atraumatic. Eyes - pupils equal, round, reactive to light and accommodation. Extraocular movements were intact. C onjunctivae were nonicteric. Ears - bilateral tympanic membranes were normal. The mouth and oropharynx were clear with moist mucous membranes. There were no pharyngeal exudates or erythema. Neck: Supple and nontender. There was no jugular venous distention, lymphadenopathy, thyromegaly or masses. Chest: Clear to auscultation bilaterally without wheezes, rales or rhonchi. No accessory muscle use. No dullness to percussion. Heart: Rate regular and rhythmic. S1, S2. No murmurs. Palpation of the chest wall was normal. No rubs or thrills. Abdomen: Mild diffuse abdominal tenderness. Positive bowel sounds. No guarding or rebound. No hepatosplenomegaly or palpable masses. Extremities: No cyanosis, clubbing or edema. The patient moves all extremities . Pulses were equal and symmetric. Neurologic: Cranial nerves II-XII were intact. Sensation was intact to light touch throughout. Motor strength was 5/5 in all four extremities. Deep tendon reflexes were intact in both upper and lower extremities. Psychologic: The patient was oriented to person, place and time. The patient demonstrated appropriate judgement and insight. Progress Results/Orders Results/Orders Orders - SANTIAGO MALLORY MD Culture Blood (03/05/25 12:19) Urinalysis, Cult If Indicated (03/05/25 12:19) Chest,Single View (03/05/25 12:19) Monitor (03/05/25 12:19) Oxygen (03/05/25 12:19) Saline Lock (03/05/25 12:19) Straight Cath For Urine Sample (03/05/25 12:19) Ct Abdomen Pelvis (03/05/25 15:24) Piperacillin/Tazo 3.375gm/50ml (Zosyn 3. (03/05/25 17:15) Page Hospitalist (03/05/25 17:13) Fill Out Med Reconciliation (03/05/25 17:13) Page Hospitalist (03/05/25 17:13) Fill Out Med Reconciliation (03/05/25 17:13) Completed Orders - SANTIAGO MALLORY MD Cbc/Diff (03/05/25 12:19) Chest,Single View (03/05/25 12:19) Procalcitonin (03/05/25 12:19) BMP (03/05/25 12:19) Lacticsepsis (03/05/25 12:19) Ondansetron Inj. (Zofran 4mg/2ml Vial) (03/05/25 13:00) Morphine 2mg/Ml Inj. (Morphine Inj.) (03/05/25 13:00) Normal Saline 1000ml (Sodium Chloride 10 (03/05/25 13:00) Acetaminophen 325mg Tablet (Tylenol Tabl (03/05/25 13:35) Lactic,2hr (03/05/25 15:00) Ct Abdomen Pelvis (03/05/25 15:24) Normal Saline 1000ml (Sodium Chloride 10 (03/05/25 15:25) Procalcitonin (03/05/25 15:24) Pt Inr (03/05/25 15:26) PTT (03/05/25 15:26) Lipase (03/05/25 12:43) Liver Panel (03/05/25 12:43) MG (03/05/25 12:43) Medications Received in ER Medications (Trade) Dose Ordered Sig/Rob Route PRN Reason Start Time Stop Time Status Last Admin Dose Admin (Zofran 4mg/2ml vial) 4 mg ONCE ONCE IV 03/05/25 13:00 03/05/25 13:02 DC 03/05/25 13:44 4 MG (morphine inj.) 1 mg ONCE ONCE IV 03/05/25 13:00 03/05/25 13:02 DC 03/05/25 13:44 1 MG Sodium Chloride 1,000 ml @ 1,000 mls/hr ONCE ONCE IV 03/05/25 13:00 03/05/25 13:59 DC 03/05/25 13:44 1,000 MLS/HR (Tylenol tablet) 650 mg ONCE ONCE PO 03/05/25 13:35 03/05/25 13:40 DC 03/05/25 13:44 650 MG (sodium chloride 1000ml IV soln) 1,000 ml ONCE ONCE IV 03/05/25 15:25 03/05/25 15:26 DC 03/05/25 15:30 1,000 ML Vital Signs 03/05/25 03/05/25 03/05/25 03/05/25 12:12 12:25 12:29 13:44 Temp 102.9 Pulse 84 108 Resp 12 12 12 11 B/P (MAP) 110/71 111/74 (86) Pulse Ox 98 98 O2 Flow Rate 0 0 03/05/25 03/05/25 03/05/25 03/05/25 13:49 14:45 15:33 17:06 Temp 100.2 99.8 Pulse 107 103 98 92 Resp 13 18 16 17 B/P (MAP) 102/64 (77) 102/63 (76) 87/57 (67) 95/50 (65) Pulse Ox 97 96 97 96 O2 Flow Rate 0 0 0 0 Laboratory Tests Test 03/05/25 12:43 03/05/25 15:07 White Blood Count 5.5 Red Blood Count 4.69 Hemoglobin 12.1 Hematocrit 36.7 Mean Corpuscular Volume 78.2 Mean Corpuscular Hemoglobin 25.8 L Mean Corpuscular Hemoglobin Concent 33.0 Red Cell Distribution Width 18.4 H Platelet Count 121 L Mean Platelet Volume 9.4 Neutrophils (%) (Auto) 83.1 H Lymphocytes (%) (Auto) 10.4 L Monocytes (%) (Auto) 5.6 Eosinophils (%) (Auto) 0.1 Basophils (%) (Auto) 0.8 Neutrophils # (Auto) 4.6 Lymphocytes # (Auto) 0.6 L Monocytes # (Auto) 0.3 Eosinophils # (Auto) 0.0 Basophils # (Auto) 0.0 CBC Comment Prothrombin Time 12.5 H INR International Normalized Ratio 1.2 Activated Partial Thromboplast Time 29 Coagulation Comments Sodium Level 134 L Potassium Level 3.9 Chloride Level 99 Carbon Dioxide Level 23.5 L Anion Gap 12 Blood Urea Nitrogen 7 Creatinine 1.03 H Estimated GFR/1.73 m2 57 BUN/Creatinine Ratio 6.8 L Glucose Level 339 H Lactic Acid Level 3.7 H 3.0 H Calcium Level 9.0 Magnesium Level 1.2 L Total Bilirubin 1.3 H Direct Bilirubin 0.6 H Aspartate Amino Transf (AST/SGOT) 42 H Alanine Aminotransferase (ALT/SGPT) 27 Alkaline Phosphatase 157 H Total Protein 7.5 Albumin 3.2 L Globulin 4.3 Albumin/Globulin Ratio 0.7 L Lipase 22 Procalcitonin 0.15 Chemistry Comments Microbiology Date/Time Source Procedure Growth Status 03/05/25 13:00 Blood Arm Left Blood Culture - Preliminary NEGATIVE (LESS THAN 24 HOURS) Resulted Re-Evaluation Re-Evaluation : Re-Evaluation: Improved Progress Patient is a cirrhotic patient liver failure. Patient blood pressure is often low for that reason. Patient also takes metformin. Lactic acid is elevated most likely due to metformin and the low blood pressure is related to cirrhosis. For that reason the patient was not given 30 milligrams/kilogram of saline. EKG/XRAY/CT/US/VASC/MRI Chest X-Ray : Additional Comments EXAM: DI CHEST,SINGLE VIEW HISTORY: FEVER COMPARISON: DI CHEST,SINGLE VIEW on DOS: 01/25/25 TECHNIQUE: Portable upright AP view of the chest was performed. FINDINGS: No pneumothorax, consolidative infiltrates, or pulmonary edema. The heart is not enlarged. No fractures are identified about the bony thorax. IMPRESSION: No acute intrathoracic process. Electronically Signed by:JONATHAN PAUL MD Date & Time: 03/05/[address] : Impression CT CT ABDOMEN PELVIS INDICATION: Sepsis EXAM DATE: 03/05/2025 04:04 PM COMPARISON: CT CT ABDOMEN PELVIS on DOS: 01/25/25, CT CT ABDOMEN PELVIS W/ IV CONTRAST on DOS: 12/06/24 RADIATION DOSE: CTDIvol: 9 mGy, DLP: 487 mGy*cm PROCEDURE: Helical CT images were obtained of the abdomen and pelvis without IV contrast Sagittal and coronal reconstructions are provided. ORAL CONTRAST: None. ADDITIONAL IMAGES / REFORMATS: None All CT scans at this medical facility are performed using dose modulation techniques as appropriate to a performed exam including the following: Automated exposure control was utilized; adjustment of the MA and/or KV according to patient size; and use of iterative reconstruction technique. FINDINGS: LUNG BASE: Normal. LIVER: Cirrhotic liver morphology. Gastric varices are visualized. GALLBLADDER AND BILIARY TREE: Small calcified gallstones are seen. No intra- or extrahepatic biliary ductal dilation. PANCREAS: Significant coarse calcifications in the pancreas could be from prior pancreatitis. SPLEEN: Enlarged BOWEL: There is moderate colonic diverticulosis. Mild thickening of small bowel wall could be seen with portal enteropathy. The appendix is normal. ADRENALS: Normal. KIDNEYS AND URETER: Punctate nonobstructive left kidney stone. BLADDER: Normal. REPRODUCTIVE ORGANS: Normal. LYMPH NODES:No lymphadenopathy. PERITONEUM: Trace ascites is visualized. VESSELS: Scattered atherosclerotic calcifications are noted. RETROPERITONEUM: Normal. ABDOMINAL WALL: Normal. BONES: Scattered osseous degenerative changes are noted. IMPRESSION: Liver cirrhosis with portal hypertension including gastric varices, splenomegaly, ascites. Punctate nonobstructive left kidney stone. No focal fluid collection. Cholelithiasis.. Portal enteropathy. Moderate colonic diverticulosis. Electronically Signed by:PIETRO BLACKWELL MD Date & Time: 03/05/25 1703 Departure Disposition: ADMITTED INPATIENT Admitted to Inpatient Unit: yes, to hospitalist Admission Level of Care: Med/Surg with Tele Impression: Primary Impression: Hyperglycemia Additional Impressions: Cirrhosis Qualified Codes: K70.31 - Alcoholic cirrhosis of liver with ascites Lactic acidosis Enteritis Condition: Stable Discharge Instructions: Nausea and Vomiting, Adult, [id number] Referrals: NO PRIMARY CARE PROVIDER (PCP) Education Educated: Patient Educated regarding: diagnosis, treatment, prognosis, need for follow up Signature Scribe Signature: Scribed for Santiago Mallory MD by Shameka Chase . 03/05/25 15:32 Attestation: The note accurately reflects work and decisions made by me.Santiago Mallory MD 03/05/25 14:53 SANTIAGO MALLORY MD Mar 05, 2025 14:54 SHAMEKA CHOU Mar 05, 2025 15:32
[2025-03-05] MEDS: normal saline 1000ML IV soln IV ONE (15:30)
[2025-03-05 15:44] LABS: APTT 29 SECONDS (22-32); INR 1.2 INR; PROTHROMBIN TIME 12.5 SECONDS (9.0-12.0)
[2025-03-05 15:47] LABS: ALANINE AMINOTRANSFERASE 27 U/L (12-78); ALBUMIN/GLOBULIN RATIO 0.7 (1.1-1.5); ALKALINE PHOSPHATASE 157 IU/L (46-116); ASPARTATE AMINO TRANSFERASE 42 U/L (10-37); BILIRUBIN,DIRECT 0.6 MG/DL (0-0.3); BILIRUBIN,TOTAL 1.3 MG/DL (0.1-1.0); LIPASE 22 U/L (16-77); MAGNESIUM 1.2 MG/DL (1.5-2.4); TOTAL PROTEIN 7.5 G/DL (6.4-8.2)
--- NOTE | 2025-03-05 17:06 | RADIOLOGY REPORT ---
CT CT ABDOMEN PELVIS INDICATION: Sepsis EXAM DATE: 03/05/2025 04:04 PM COMPARISON: CT CT ABDOMEN PELVIS on DOS: 01/25/25, CT CT ABDOMEN PELVIS W/ IV CONTRAST on DOS: 12/06/24 RADIATION DOSE: CTDIvol: 9 mGy, DLP: 487 mGy*cm PROCEDURE: Helical CT images were obtained of the abdomen and pelvis without IV contrast Sagittal and coronal reconstructions are provided. ORAL CONTRAST: None. ADDITIONAL IMAGES / REFORMATS: None All C T scans at this medical facility are performed using dose modulation techniques as appropriate to a p erformed exam including the following: Automated exposure control was utilized; adjustment of the MA and/or KV according to patient size; and use of iterative reconstruction technique. FINDINGS: LUNG BASE: Normal. LIVER: Cirrhotic liver morphology. Gastric varices are visualized. GALLBLADDER AND BILIARY TREE: Small calcified gallstones are seen. No intra- or extrahepatic biliary ductal dilation. PANCREAS: Significant coarse calcifications in the pancreas could be from prior pancreatitis. SPLEEN: Enlarged BOWEL: There is moderate colonic diverticulosis. Mild thickening of small bowel wall could be seen wi th portal enteropathy. The appendix is normal. ADRENALS: Normal. KIDNEYS AND URETER: Punctate nonobstructive left kidney stone. BLADDER: Normal. REPRODUCTIVE ORGANS: Normal. LYMPH NODES:No lymphadenopathy. PERITONEUM: Trace ascites is visualized. VESSELS: Scattered atherosclerotic calcifications are noted. RETROPERITONEUM: Normal. ABDOMINAL WALL: Normal. BONES: Scattered osseous degenerative changes are noted. IMPRESSION: Liver cirrhosis with portal hypertension including gastric varices, splenomegaly, ascites. Punctate nonobstructive left kidney stone. No focal fluid collection. Cholelithiasis.. Portal enteropathy. Moderate colonic diverticulosis.
[2025-03-05] MEDS: piperacillin/tazo 3.375gm/50ml 50 ML IV ONE (17:54)
[2025-03-05] MEDS ORDERED: mag hydrox/Alum hydrox/simeth 30ml oral suspension PO PRN (19:30)
[2025-03-05] MEDS ORDERED: magnesium sulf-water 4G/100mL 100 ML IV PRN (19:30)
[2025-03-05] MEDS ORDERED: morphine 2 MG/ML inj. syringe IV PRN (19:30)
[2025-03-05] MEDS ORDERED: potassium Cl 20 mEq SR tablet PO PRN ×2 (19:30)
[2025-03-05] MEDS ORDERED: magnesium hydroxide 30ml (MOM) UD suspension PO PRN (19:30)
[2025-03-05] MEDS ORDERED: potassium Cl 40MEQ/1/2NS 520ml 520 ML IV PRN (19:30)
[2025-03-05] MEDS ORDERED: ondansetron/PF 4mg/2ml inj IV PRN (19:30)
[2025-03-05] MEDS ORDERED: magnesium sulf-water 2g/50mL 50 ML IV PRN (19:30)
--- NOTE | 2025-03-05 19:48 | HISTORY AND PHYSICAL-Residence ---
History & Physical Providers to CC Resident Creating Document: PURVI FARRELL, RES ~ History of Present Illness Primary Medical Doctor: JEROME Reason for Admit\Complaint: Diarrhea History of Present Illness The patient is a 49-year-old female with past medical history of alcoholic liver cirrhosis, diabetes mellitus, presented to the ED with complaints of abdominal pain that started three days ago. It is also associated with diarrhea, tarry, sometimes red sometimes green and sometimes black. The patient reported that her grandson and daughter also had diarrhea during this past week. Patient also had three episodes of vomiting last night, noticed some red vomitus and she thinks it is Andrés-Aid that she drank earlier. The patient also complains of nausea, headache and fever. Denies shortness of breath, cough, chest pain, palpitations, burning micturition, constipation. No history of unusual food intake and no recent travel history. The patient has alcoholic liver cirrhosis and is currently in a program. Has been sober since the last six months. Is scheduled to see a management supervisor soon at [facility]. Past medical history of upper GI bleed and some kind of unknown intervention done. Patient has also undergone paracentesis couple times several months ago. Allergies: Coded Allergies: No Known Allergies (Unverified , 03/05/25) Home Medications Home Medications Active Lactulose 10 Gram/15 Ml Solution 30 Ml PO Q12H 30 Days Lasix (Furosemide) 20 Mg Tablet 20 Mg PO DAILY 30 Days Spironolactone 25 Mg Tablet 25 Mg PO DAILY 30 Days Reported Trazodone HCl 50 Mg Tablet 1 Tab PO HS Gabapentin 100 Mg Capsule 1 Cap PO TID Atarax* (Hydroxyzine HCl) 25 Mg Tablet 1 Tab PO TID PRN Past Medical History Past Medical History Alcoholic liver cirrhosis Diabetes mellitus History of SVT Past Surgical History Surgical History Comment Hysterectomy Family history: Nonsignificant. Past Social History Social History Comment The patient lives in a alcohol cessation program. Visits her daughter and grandson every couple of days. Independent with ADLs. PCP is Dr. Zarate and she is scheduled to see a management supervisor at [facility] soon. Last alcohol intake 6-7 months ago. Had been a heavy alcoholic since she was a teenager. Smokes about five cigarettes per day. Denies other illicit drug abuse. ROS All Other Systems: Reviewed and Negative ROS Reviewed in full. Negative except for pertinent positives in HPI. Exam Vitals: Vital Signs Date Time Temp Pulse Resp B/P (MAP) Pulse Ox O2 Delivery O2 Flow Rate FiO2 03/05/25 18:30 92 14 100/62 (75) 97 0 03/05/25 15:33 99.8 General: Adult female, alert and oriented x4, appears to be in mild distress because of abdominal pain Head: Normocephalic with an atraumatic Eyes: Pupils- 3mm, reacting to light, conjunctiva- anicteric Nose and throat: No polyps, septum- normal, no mucosal ulcers Neck: Supple, no lymphadenopathy, no carotid bruit Respiratory: No use of accessory muscles of respiration, Bilateral normal vesiscular breath sounds heard. No wheeze, rhochi or creps Cardiac: S1-S2 heard, rhythm regular, no gallop/murmur Abdomen: non distended, soft, RUQ tenderness present, no organomegaly, bowel sounds - heard Extremities: no clubbing, no pedal edema, no deformities, peripheral pulses - 2+ Skin: warm and dry, no rash, no purpura Neuro: No focal deficit, gross cranial nerve exam - normal Diagnostic Data Last Recorded Lab Results: 03/05/25 1243 03/05/25 1243 Diagnostic Data: Laboratory Tests Test 03/05/25 12:43 Prothrombin Time 12.5 SECONDS (9.0-12.0) H INR International Normalized Ratio 1.2 INR Activated Partial Thromboplast Time 29 SECONDS (22-32) Coagulation Comments Counseling Services Smoking & Tobacco Cessation: > 10 Minutes Advance Care Planning Advanced Care plannin - 30 Minutes Additional Plan 49-year-old female with past medical history of alcoholic liver cirrhosis, diabetes mellitus, presented to the ED with complaints of abdominal pain and diarrhea. She is being admitted into the hospital for further evaluation and management. Plan: Acute gastroenteritis Possible diarrhea secondary to metformin use Started the patient on IV ciprofloxacin and IV metronidazole. She received one dose of Zosyn in the ER. Follow up with blood cultures, stool cultures, stool WBCs, stool ova and parasites. No leukocytosis, normal procalcitonin. Elevated and downtrending lactic acid- 3.7, 3.0. Patient received 2 L of NS in the ER. Continue IV fluids at 100 mL/hour. Cautious IV fluid administration because of cirrhosis and patient has trace ascites. Hold metformin for now. Alcoholic liver cirrhosis Possible variceal bleed Thrombocytopenia, elevated PT, low albumin, elevated LFTs. CT abdomen shows liver cirrhosis, portal hypertension with gastric varices, splenomegaly and trace ascites. Patient complained of black tarry stools. Hemoglobin is within normal limits and stable. Follow up with the repeat H&H. Follow up with stool occult blood test. Started the patient on IV Protonix 40 mg b.i.d. If stool occult is positive or if the patient has another episode of GI bleed or if the hemoglobin drops, consider starting the patient on octreotide drip and Protonix drip. We will consult GI if needed. Start spironolactone after medication reconciliation. Hold off on lactulose in view of diarrhea. Follow up with ammonia. Uncontrolled diabetes mellitus High blood glucose. HB A1c greater than 12. Hold metformin. Starting the patient on hyperglycemia/hypoglycemia protocol with 20 units Lantus, 5 units Humalog, low-dose supplemental insulin protocol. Code Status: Full code DVT Prophylaxis: SCDs Analgesia/Sedation: Morphine Lines/Tubes: PIV GI Prophylaxis: Protonix Nutrition: Heart healthy diet PT: Ordered Prognosis: Guarded Disposition: We will admit the patient into medical concepcion. Follow up with stool occult blood. Start octreotide and Protonix drip if needed. Purvi Farrell MD Internal Medicine Resident PGY-1 Date of Service: Mar 05, 2025 Billing Provider: RAGHAVENDRA CADET MD,PURVI COLLINS, RES Mar 05, 2025 19:48
[2025-03-05 19:59] LABS: HEMOGLOBIN A1C > 12.0 % (4.5-6.2)
[2025-03-05] MEDS: K and/or MAG REPLACEMENT MC SCH (20:00)
[2025-03-05] MEDS ORDERED: DEXTROSE 15 GM of carb/4 tabs (each vial/BOTTLE has 4 tablets) PO PRN ×2 (20:05)
[2025-03-05] MEDS ORDERED: dextrose 50%-water 50ml dispensing syringe IV PRN ×2 (20:05)
[2025-03-05] MEDS ORDERED: glucagon, human recombinant 1mg kit SUBCUT PRN (20:05)
[2025-03-05 20:07] LABS: HEMATOCRIT 34.9 % (35.0-45.0); HEMOGLOBIN 11.4 g/dl (12.0-16.0); MEAN CORPUSCULAR HEMOGLOBIN 25.7 PG (27.0-31.0); MEAN CORPUSCULAR HGB CONC 32.7 g/dL (33.0-36.5); MEAN CORPUSCULAR VOLUME 78.6 FL (78-98); MEAN PLATELET VOLUME 8.9 FL (7.4-10.4); PLATELET COUNT 104 X10'3 (140-440); RED BLOOD COUNT 4.44 X10'6 (4.20-5.60); RED CELL DISTRIBUTION WIDTH 18.7 % (11.5-14.5); WHITE BLOOD COUNT 5.6 X10'3 (4.5-11.0)
[2025-03-05 20:07] LABS: PRO BRAIN NATRIURETIC PEPTIDE 136 PG/ML (0-125)
[2025-03-05 20:28] LABS: LACTIC SEPSIS 2.2 MMOL/L (0.4-2.0)
[2025-03-05] MEDS: pantoprazole 40 MG vial IV SCH (20:54)
[2025-03-05] MEDS: ciprofloxacin lact 400MG/200ML 200 ML IV SCH (20:56)
[2025-03-05] MEDS: normal saline 1000ml 1,000 ML IV SCH (20:56)
[2025-03-05] MEDS: magnesium Cl slow-release 64mg tablet PO PRN (20:56)
[2025-03-05] MEDS: INSULIN LISPRO 100 UNIT/ML INSULN.PEN MULTI-DOSE SQ SCH (21:00)
[2025-03-05] MEDS ORDERED: morphine 4 MG/ML inj SYRINge IV PRN (21:31)
[2025-03-05] MEDS: insulin glargine (Lantus) pen - multi-dose SQ SCH (22:28)
[2025-03-05 22:52] LABS: BILIRUBIN,URINE SMALL (Neg); CLARITY,URINE CLEAR (Clear); GLUCOSE, URINE 500 mg/dl (Neg); KETONES,URINE TRACE mg/dl (Neg); LEUKOCYTE ESTERASE ,URINE NEGATIVE (Neg); NITRITES, URINE NEGATIVE (Neg); OCCULT BLOOD,URINE NEGATIVE (Neg); PROTEIN,URINE 30 mg/dl (Neg)
[2025-03-05 22:53] LABS: COLOR,URINE Straw (Yellow); UA COLLECTION TYPE CLN CATCH MIDSTREAM
[2025-03-05 22:57] LABS: MUCUS STRANDS FEW /LPF (Neg)
[2025-03-05 22:58] LABS: BACTERIA,URINE FEW /HPF (Neg); RBC,URINE 0-2 /HPF (0-2); SQUAMOUS EPITHELIAL CELL,UR MANY /LPF (FEW); WBC,URINE 0-4 /HPF (0-4); YEAST FEW /HPF (NEGATIVE)
[2025-03-05 22:59] LABS: HYALINE CASTS 0-3 /LPF (NEGATIVE)
[2025-03-05 23:08] LABS: URINE AMPHETAMINE SCREEN NEGATIVE (Neg); URINE BARBITUATE SCREEN NEGATIVE (Neg); URINE BENZODIAZEPINES SCREEN NEGATIVE (Neg); URINE CANNABINOID SCREEN NEGATIVE (Neg); URINE COCAINE SCREEN NEGATIVE (Neg); URINE METHADONE SCREEN NEGATIVE (Neg); URINE OPIATE SCREEN POSITIVE (Neg); URINE PHENCYCLIDINE SCREEN NEGATIVE (Neg)
[2025-03-05] MEDS: acetaminophen 325mg tablet PO PRN (23:48)
[2025-03-05] MEDS: metroNIDAZOLE-Flagyl 500mg/NS 100 ML IV SCH (23:49)
[2025-03-06] VITALS (10 sets, daily range): BP systolic 74–100; BP diastolic 43–67; PULSE 67–88; RESP 9–16; TEMP 97.2–98.9; O2SAT 95–100
[2025-03-06] MEDS: HYDROcodone/acetaminophen 5mg/325mg tablet PO PRN (01:33)
[2025-03-06 06:33] LABS: BASOPHILS % (AUTO) 0.9 % (0-1); EOSINOPHILS % (AUTO) 0.4 % (0-6); HEMATOCRIT 30.4 % (35.0-45.0); LYMPHOCYTES % (AUTO) 36.1 % (21-51); MEAN CORPUSCULAR HEMOGLOBIN 25.9 PG (27.0-31.0); MEAN CORPUSCULAR HGB CONC 32.9 g/dL (33.0-36.5); MEAN CORPUSCULAR VOLUME 78.9 FL (78-98); MEAN PLATELET VOLUME 8.9 FL (7.4-10.4); MONOCYTES # (AUTO) 0.3 X10'3 (0-0.9); MONOCYTES % (AUTO) 10.3 % (2-12); NEUTROPHILS # (AUTO) 1.5 X10'3 (1.8-7.7); NEUTROPHILS % (AUTO) 52.3 % (42-75); PLATELET COUNT 82 X10'3 (140-440); RED BLOOD COUNT 3.86 X10'6 (4.20-5.60); RED CELL DISTRIBUTION WIDTH 18.2 % (11.5-14.5); WHITE BLOOD COUNT 2.8 X10'3 (4.5-11.0)
[2025-03-06 06:42] LABS: INR 1.5 INR; PROTHROMBIN TIME 14.6 SECONDS (9.0-12.0)
[2025-03-06 07:03] LABS: ALANINE AMINOTRANSFERASE 18 U/L (12-78); ALBUMIN 2.3 G/DL (3.4-5.0); ALBUMIN/GLOBULIN RATIO 0.7 (1.1-1.5); ALKALINE PHOSPHATASE 114 IU/L (46-116); ANION GAP 8 (8-16); ASPARTATE AMINO TRANSFERASE 40 U/L (10-37); BILIRUBIN,TOTAL 0.7 MG/DL (0.1-1.0); BLOOD UREA NITROGEN 10 MG/DL (7-18); BUN/CREATININE RATIO 12.5 (10.0-20.0); CALCIUM 7.5 MG/DL (8.5-10.1); CHLORIDE 108 MMOL/L (99-107); CHOL/HDL RATIO 2.3 (0.00-4.99); CHOLESTEROL 77 MG/DL (0-200); GLUCOSE 116 MG/DL (70-104); HDL CHOLESTEROL 34 MG/DL (35-60); LDL CHOLESTEROL 33 MG/DL (50-100); MAGNESIUM 1.2 MG/DL (1.5-2.4); POTASSIUM 3.7 MMOL/L (3.5-5.1); SODIUM 139 MMOL/L (135-145); TOTAL CARBON DIOXIDE 23.3 MMOL/L (24-32); TOTAL PROTEIN 5.7 G/DL (6.4-8.2); TRIGLYCERIDES 56 MG/DL (20-135); eCRCL 65 ML/MIN; eGFR 77 ML/MIN
[2025-03-06 07:11] LABS: TOTAL CELLS COUNTED 100
[2025-03-06 07:12] LABS: ANISOCYTOSIS 2+; ELLIPTOCYTES 1+; HYPOCHROMASIA 1+; MICROCYTOSIS 1+; PLATELET ESTIMATE DECREASED; SCHISTOCYTES FEW; TEAR DROP CELLS FEW
[2025-03-06] MEDS: HYDROcodone/acetaminophen 10/325mg tab PO PRN (08:16)
[2025-03-06] MEDS: nicotine 14mg patch - 24hr TD SCH (08:17)
[2025-03-06] MEDS: INSULIN LISPRO 100 UNIT/ML INSULN.PEN MULTI-DOSE SQ SCH (09:00)
[2025-03-06 09:54] LABS: OCCULT BLOOD STOOL NEGATIVE (Neg)
[2025-03-06 10:30] LABS: ETHANOL < 10 MG/DL (<10)
[2025-03-06] MEDS ORDERED: hydrOXYzine 25 MG tablet PO PRN (11:15)
[2025-03-06] MEDS: gabapentin 100mg capsule PO SCH (13:28)
--- NOTE | 2025-03-06 16:34 | PROGRESS NOTE- Residence ---
Progress Note - Resident Providers to CC Resident Creating Document: PURVI FARRELL, RES ~ Antibiotic Timeout Antibiotic Ordered?: Yes Subjective The patient was seen and examined at bedside today. She feels better today. She had one bowel movement after being transferred to PCU at night. No further episodes of vomiting. Stool occult done, negative. Patient still has abdominal tenderness. Started her on ceftriaxone for SBP prophylaxis. Continuing IV fluids. Objective Vital Signs Date Time Temp Pulse Resp B/P (MAP) Pulse Ox O2 Delivery O2 Flow Rate FiO2 03/06/25 11:00 97.6 67 14 100/67 (78) 97 Room Air 03/05/25 23:23 0 Result Diagram: 03/06/2561603/06/25616 Adult female, alert and oriented x4, not in acute distress Head: Normocephalic with an atraumatic Eyes: Pupils- 3mm, reacting to light, conjunctiva- anicteric Nose and throat: No polyps, septum- normal, no mucosal ulcers Neck: Supple, no lymphadenopathy, no carotid bruit Respiratory: No use of accessory muscles of respiration, Bilateral normal vesicular breath sounds heard. No wheeze, rhochi or creps Cardiac: S1-S2 heard, rhythm regular, no gallop/murmur Abdomen: non distended, soft, mild diffuse tenderness present, no organomegaly, bowel sounds - heard Extremities: no clubbing, no pedal edema, no deformities, peripheral pulses - 2+ Skin: warm and dry, no rash, no purpura Neuro: No focal deficit, gross cranial nerve exam - normal Digital rectal examination: Good rectal tone, yellow stool smear collected Coagulation Studies Laboratory Tests Test 03/05/25 12:43 03/06/25 06:17 Activated Partial Thromboplast Time 29 SECONDS (22-32) Prothrombin Time 14.6 SECONDS (9.0-12.0) H INR International Normalized Ratio 1.5 INR Coagulation Comments Assessment Assessment A 49-year-old female with past medical history of alcoholic liver cirrhosis, diabetes mellitus, presented to the ED with complaints of abdominal pain and diarrhea. She is being admitted into the hospital for further evaluation and management. Plan Plan Acute gastroenteritis possibly bacterial Possible diarrhea secondary to metformin use Diarrhea has resolved. Switched antibiotics from ciprofloxacin to ceftriaxone for SBP prophylaxis. Follow up with blood cultures, stool cultures, stool WBCs, stool ova and parasites. No leukocytosis, normal procalcitonin. Elevated and downtrending lactic acid- 3.7, 3.0, 2.2, 1.5. Decrease IV fluids to 75 mL/hour. Cautious IV fluid administration because of cirrhosis and patient has trace ascites. Hold metformin for now. Alcoholic liver cirrhosis Variceal bleed, ruled out Thrombocytopenia, elevated PT, low albumin, elevated LFTs. CT abdomen shows liver cirrhosis, portal hypertension with gastric varices, splenomegaly and trace ascites. Hemoglobin is trending down, likely dilutional. Stool occult negative. Continue IV Protonix 40 mg b.i.d. Continue home spironolactone and lactulose. Ammonia elevated 40. Uncontrolled diabetes mellitus High blood glucose. HB A1c greater than 12. Hold metformin. Starting the patient on hyperglycemia/hypoglycemia protocol with 20 units Lantus, 5 units Humalog, low-dose supplemental insulin protocol. Code Status: Full code DVT Prophylaxis: SCDs Analgesia/Sedation: Morphine Lines/Tubes: PIV GI Prophylaxis: Protonix Nutrition: Heart healthy diet PT: Ordered Prognosis: Guarded Disposition: Continue care in medical concepcion. Continue IV antibiotics. PT evaluation pending. Follow up with blood and stool cultures. Purvi Farrell MD Internal Medicine Resident PGY-1 Date of Service: Mar 06, 2025 Billing Provider: RAGHAVENDRA CADET MD,PURVI COLLINS, RES Mar 06, 2025 16:34
[2025-03-06] MEDS: CefTRIAXone 2gm/D5W 50ml BAG 50 ML IV SCH (17:18)
[2025-03-06] MEDS: lactulose 20gm/30ml cup PO PRN (21:16)
[2025-03-06] MEDS: traZODone 50mg tablet PO SCH (21:16)
[2025-03-07 02:00] VITALS: BP 93/60; PULSE 79; RESP 12; TEMP 97.1; O2SAT 100
[2025-03-07 06:00] VITALS: BP 86/54; PULSE 72; RESP 14; TEMP 97.6; O2SAT 99
[2025-03-07 08:00] VITALS: RESP 14; O2SAT 99
[2025-03-07] MEDS: spironolactone 25 MG tablet PO SCH (08:00)
[2025-03-07 09:38] LABS: BASOPHILS % (AUTO) 0.9 % (0-1); EOSINOPHILS # (AUTO) 0.1 X10'3 (0-0.9); EOSINOPHILS % (AUTO) 2.6 % (0-6); HEMOGLOBIN 9.8 g/dl (12.0-16.0); LYMPHOCYTES % (AUTO) 31.8 % (21-51); MEAN CORPUSCULAR HGB CONC 32.7 g/dL (33.0-36.5); MEAN CORPUSCULAR VOLUME 79.6 FL (78-98); MEAN PLATELET VOLUME 9.6 FL (7.4-10.4); MONOCYTES # (AUTO) 0.4 X10'3 (0-0.9); MONOCYTES % (AUTO) 13.3 % (2-12); NEUTROPHILS # (AUTO) 1.7 X10'3 (1.8-7.7); NEUTROPHILS % (AUTO) 51.4 % (42-75); PLATELET COUNT 89 X10'3 (140-440); RED BLOOD COUNT 3.76 X10'6 (4.20-5.60); RED CELL DISTRIBUTION WIDTH 18.7 % (11.5-14.5); WHITE BLOOD COUNT 3.3 X10'3 (4.5-11.0)
[2025-03-07 09:50] LABS: ALANINE AMINOTRANSFERASE 20 U/L (12-78); ALBUMIN 2.3 G/DL (3.4-5.0); ALBUMIN/GLOBULIN RATIO 0.7 (1.1-1.5); ALKALINE PHOSPHATASE 114 IU/L (46-116); ANION GAP 8 (8-16); ASPARTATE AMINO TRANSFERASE 30 U/L (10-37); BILIRUBIN,TOTAL 0.5 MG/DL (0.1-1.0); BLOOD UREA NITROGEN 8 MG/DL (7-18); BUN/CREATININE RATIO 12.1 (10.0-20.0); CALCIUM 7.8 MG/DL (8.5-10.1); CHLORIDE 108 MMOL/L (99-107); CREATININE 0.66 MG/DL (0.40-0.90); GLUCOSE 110 MG/DL (70-104); MAGNESIUM 1.4 MG/DL (1.5-2.4); POTASSIUM 3.6 MMOL/L (3.5-5.1); SODIUM 140 MMOL/L (135-145); TOTAL CARBON DIOXIDE 23.8 MMOL/L (24-32); TOTAL PROTEIN 5.7 G/DL (6.4-8.2); eCRCL 79 ML/MIN; eGFR > 90 ML/MIN
[2025-03-07 10:00] LABS: INR 1.4 INR; PROTHROMBIN TIME 13.7 SECONDS (9.0-12.0)
[2025-03-07 11:00] VITALS: BP 98/60; PULSE 73; RESP 14; TEMP 97.3; O2SAT 100
[2025-03-07] MEDS: polyethylene glycol 3350 17gm powd pack PO STA (12:20)
[2025-03-07] MEDS: acetaminophen 325mg tablet PO PRN (12:33)
[2025-03-07] MEDS ORDERED: METR-159 PO (14:41)
[2025-03-07] MEDS ORDERED: INSU100V11 SQ (14:41)
[2025-03-07] MEDS ORDERED: PROP10TA10 PO (14:41)
[2025-03-07] MEDS ORDERED: CEFD300C3 PO (14:41)
[2025-03-07] MEDS ORDERED: RIFA550T PO (14:41)
[2025-03-07] MEDS ORDERED: LANTUS SQ (14:41)
[2025-03-07] MEDS ORDERED: FOLI0.4T6 PO (14:42)
[2025-03-07] MEDS ORDERED: MULT-1085 PO (14:42)
[2025-03-07] MEDS ORDERED: THIA50TA10 PO (14:42)
[2025-03-07 15:00] VITALS: BP 96/59; PULSE 83; RESP 16; TEMP 97; O2SAT 100
--- NOTE | 2025-03-07 16:58 | DISCHARGE SUMMARY-Residence ---
Discharge Summary Providers to CC Resident Creating Document: MARCIA FARRELL, CHARLEE ~ Discharge Summary Admission Diagnosis: Enteritis, sepsis, cirrhosis Hospital Course DATE OF ADMISSION: 03/05/2025 DATE OF DISCHARGE: 03/07/2025 Date of Service: Mar 07, 2025 Billing Provider: RAGHAVENDRA CADET MD, SOWMYA MANJARI, CHARLEE Mar 07, 2025 16:58
== END 2025-03-07 16:58 | disposition home or self-care (01) | DRG 248 ==
LOC: ER 12:08 → PCU 3S 17:41
PROVIDERS: ADMIT Family Medicine; ATTEND Family Medicine
DX: A04.8 Other specified bacterial intestinal infections (principal); E87.20 Acidosis, unspecified; D69.6 Thrombocytopenia, unspecified; K70.31 Alcoholic cirrhosis of liver with ascites; K76.6 Portal hypertension; E11.9 Type 2 diabetes mellitus without complications; F17.210 Nicotine dependence, cigarettes, uncomplicated; R16.1 Splenomegaly, not elsewhere classified; E11.65 Type 2 diabetes mellitus with hyperglycemia; T38.3X5A Adverse effect of insulin and oral hypoglycemic [antidiabetic] drugs, initial encounter; Z79.899 Other long term (current) drug therapy; Y92.89 Other specified places as the place of occurrence of the external cause
CPT/HCPCS: 36415; 71045; 74176; 80048; 80053; 80061; 80076; 80305; 80320; 81001; 82140; 82272; 82948; 83036; 83605; 83690; 83735; 83880; 84145; 84484; 85007; 85025; 85027; 85610; 85730; 87040; 87081; 96365; 99285; G0378; J0696; J0744; J1815; J2270; J2405; J2470; J2543; J3490; J7030

== ENCOUNTER 2025-05-20 07:21 | Inpatient (IN) | payer MEDICAID ==
[~2025-05-20] VITALS: Ht 160 cm; Wt 50.0 kg
[2025-05-20] VITALS (21 sets, daily range): BP systolic 91–140; BP diastolic 50–79; PULSE 61–97; RESP 9–18; TEMP 97.7–99.7; O2SAT 97–100
[~2025-05-20 07:21] MED LIST changes: +CEFD300C3 PO; +INSU100V11 SQ; +LANTUS SQ; +MULT-1085 PO; +PROP10TA10 PO; +RIFA550T PO; +THIA50TA10 PO
--- NOTE | 2025-05-20 07:34 | Physician Documentation ---
History of Present Illness General Chief Complaint: Abdominal Pain Stated Complaint: ABD PAIN Time Seen by MD: 07:33 Primary Medical Doctor: ADRIANREPLACED BY [facility] History of Present Illness Initial Comments Patient is a 49-year-old female with a history of alcoholic cirrhosis. Patient states she has had abdominal pain over last 12 hours. Patient states over the last three days she has had black tarry stools. She states she also had black emesis which preceded her three days of black tarry stool she states she was vomiting multiple times for proximally three days prior to her developing the black tarry stools. Patient denies any history of GI bleed. Patient states she is an alcoholic she has a relapse proximally five days ago. Patient denies any fevers or chills. The patient states her abdominal pain is right-sided right lower abdomen and it is 9/10 in intensity. Patient denies any urinary symptoms the patient's symptoms are moderate to severe and persistent Medication Reconciliation Allergies: Coded Allergies: No Known Allergies (Unverified , 03/05/25) Scheduled Ciprofloxacin HCl (Ciprofloxacin HCl), 1 TAB PO BID Gabapentin (Gabapentin), 1 CAP PO TID, (Reported) Insulin Glargine,Hum.rec.anlog* (Lantus*), 20 UNIT SQ HS Insulin Lispro (Humalog), 1 UNIT SQ CC Lactobacillus Rhamnosus (Culturelle), 1 CAP PO BID Lactulose (Lactulose), 30 ML PO Q12H Metronidazole* (Flagyl*), 1 TAB PO Q12H Multivitamin (Multi Vitamin Daily), 1 TAB PO DAILY Pantoprazole Sodium (PROTONIX tablet), 40 MG PO BID Propranolol Hcl (Propranolol Hcl), 1 TAB PO Q12H Rifaximin (Xifaxan), 1 TAB PO Q12H Spironolactone (Spironolactone), 25 MG PO DAILY Thiamine HCl (Vitamin B-1), 1 TAB PO DAILY Trazodone HCl (Trazodone HCl), 1 TAB PO HS, (Reported) Scheduled PRN Hydrocodone Bit/Acetaminophen (Hydrocodone-Apap 10-325 Tablet), 1 TAB PO QID PRN PRN for pain Hydroxyzine Hcl* (Atarax*), 1 TAB PO TID PRN for anxiety, (Reported) Discontinued Medications Cefdinir (Cefdinir), 1 CAP PO Q12H Furosemide (Lasix), 20 MG PO DAILY Past Medical History Past Medical History: Cirrohsis Review of Systems All Other Systems at this time: Reviewed and Negative Physical Exam Physical Exam Vital Signs: Heart Rate: 92, Respiratory Rate: 15, Pulse Oximetry: 100, Weight: 50.000 Oxygen Flow Rate: 0 Physical Exam VITALS: Reviewed and as above. GENERAL: Alert, no apparent distress. HEENT: Normocephalic, atraumatic, PERRL, EOMI, dry mucosa, no erythema RESPIRATORY: Lungs clear, normal breath sounds, no respiratory distress. CHEST: No accessory muscle use, no retractions CV: Regular rate, rhythm, no edema, no murmur, No: JVD GI: Soft, tender right lower quadrant., bowels sounds present, no rebound, guarding, or rigidity the patient has dark brown to black stools that are heme- positive BACK: No CVA tenderness, or swelling MUSCULOSKELETAL: No deformities, no edema SKIN: Warm and dry, no rash NEURO: Oriented x4, No motor or sensory deficit PSYCH: Normal mood and affect, no agitation Progress Results/Orders Results/Orders Orders - OHLFS,MONICA Gudino MD Saline Lock (05/20/25 07:35) Ct Abdomen Pelvis (05/20/25 08:40) Hemocult Set Up (05/20/25 08:13) Culture Blood (05/20/25 08:55) Page Hospitalist (05/20/25 09:00) Fill Out Med Reconciliation (05/20/25 09:00) Completed Orders - OHLFS,MONICA Gudino MD Cbc/Diff (05/20/25 07:35) Lipase (05/20/25 07:35) CMP (05/20/25 07:35) Procalcitonin (05/20/25 07:35) Pt Inr (05/20/25 07:38) Electrocardiogram (05/20/25 07:40) Acetaminophen 1,000mg/100ml Iv (Ofirmev (05/20/25 07:45) Ct Abdomen Pelvis (05/20/25 08:40) Iohexol 300mg/Ml 100ml Inj. (Omnipaque-3 (05/20/25 07:51) Man Diff (05/20/25 07:39) Type And Screen (05/20/25 08:13) Pantoprazole 40mg/Ns 100ml Bag (Protonix (05/20/25 08:15) Pantoprazole 40mg Iv (Protonix 40mg Iv) (05/20/25 08:15) Pantoprazole 40mg/Ns 100ml Bag (Protonix (05/20/25 08:30) Piperacillin/Tazo 3.375gm/50ml (Zosyn 3. (05/20/25 08:55) Lacticsepsis (05/20/25 08:55) Potassium Cl 40meq/1/2ns 520ml ([place] (05/20/25 09:10) Normal Saline 1000ml (0.9% Sodium Chlori (05/20/25 09:40) Ua W/Microscopic, Cult If Ind (05/20/25 14:46) Lipid Panel (05/20/25 07:39) Vital Signs 05/20/25 05/20/25 05/20/25 05/20/25 07:27 07:34 07:34 08:30 Temp 99.5 99.5 99.5 Pulse 92 89 79 Resp 15 11 12 B/P (MAP) 98/58 98/58 (71) 102/58 (73) Pulse Ox 100 98 98 O2 Flow Rate 0 0 0 05/20/25 09:10 Pulse 77 Resp 14 B/P (MAP) 92/57 (69) Pulse Ox 100 O2 Flow Rate 0 Laboratory Tests Test 05/20/25 07:39 05/20/25 08:55 White Blood Count 4.1 L Red Blood Count 2.52 L Hemoglobin 8.3 L Hematocrit 24.0 L Mean Corpuscular Volume 95.1 Mean Corpuscular Hemoglobin 32.7 H Mean Corpuscular Hemoglobin Concent 34.4 Red Cell Distribution Width 16.7 H Platelet Count 103 L Mean Platelet Volume 9.8 Neutrophils (%) (Auto) 53.1 Lymphocytes (%) (Auto) 26.2 Monocytes (%) (Auto) 18.4 H Eosinophils (%) (Auto) 1.7 Basophils (%) (Auto) 0.6 Neutrophils # (Auto) 2.2 Lymphocytes # (Auto) 1.1 Monocytes # (Auto) 0.8 Eosinophils # (Auto) 0.1 Basophils # (Auto) 0.0 CBC Comment Differential Total Cells Counted 100 Neutrophils % (Manual) 53.0 Band Neutrophils % 1.0 Lymphocytes % (Manual) 23.0 Monocytes % (Manual) 18.0 H Eosinophils % (Manual) 1.0 Basophils % (Manual) 1.0 Reactive Lymphocytes 3.0 H Platelet Estimate Decreased Red Blood Cell Morphology Perf Polychromasia 2+ Basophilic Stippling Anisocytosis 1+ Macrocytosis 1+ Prothrombin Time 12.6 H INR International Normalized Ratio 1.3 Coagulation Comments Sodium Level 135 Potassium Level 2.5 *L Chloride Level 99 Carbon Dioxide Level 29.0 Anion Gap 7 L Blood Urea Nitrogen 10 Creatinine 0.76 Estimated GFR/1.73 m2 81 BUN/Creatinine Ratio 13.2 Glucose Level 190 H Lactic Acid Level 1.6 Calcium Level 8.4 L Total Bilirubin 2.4 H Aspartate Amino Transf (AST/SGOT) 110 H Alanine Aminotransferase (ALT/SGPT) 56 Alkaline Phosphatase 180 H Total Protein 6.5 Albumin 2.9 L Globulin 3.6 Albumin/Globulin Ratio 0.8 L Triglycerides Level 63 Cholesterol Level 89 LDL Cholesterol 51 HDL Cholesterol 26 L Cholesterol/HDL Ratio 3.4 Lipase 8 L Procalcitonin 0.33 Chemistry Comments Stool Occult Blood Positive H EKG/XRAY/CT/US/VASC/MRI CT : Impression Patient: TEOFILO GOMEZ Medical Record: [id number] [facility] : 1975, Age: 49 Sex: Female Location: ER Patient Status: [facility] ER Service Date/Time: 05/20/25839 Ordering Physician: MONICA ATKINS MD Exam: CT ABDOMEN PELVIS CLINICAL HISTORY: abd pain TECHNIQUE: CT of the abdomen and pelvis was performed with IV contrast. This exam was performed according to our departmental dose optimization program. Up-to-date CT equipment and radiation dose reduction techniques are utilized as appropriate. CTDI 7.4 DLP 384.6 COMPARISON: CT CT ABDOMEN PELVIS on DOS: 03/05/25, CT CT ABDOMEN PELVIS on DOS: 01/25/25, CT CT ABDOMEN PELVIS W/ IV CONTRAST on DOS: 12/06/24 FINDINGS: Abdomen/Pelvis: The adrenal glands, left kidney, and bladder are unremarkable. The uterus is absent. The liver is cirrhotic in morphology with nodular contour. The left hepatic lobe is elongated and extends to the left lateral abdomen. There are gastric and esophageal varices. The spleen is moderately enlarged, measuring 15.6 mid lung access. There is a small gallstone. There is a right renal cyst. There are extensive pancreatic calcifications with parenchymal atrophy and ductal dilatation measuring up to 8 mm. The abdominal aorta is normal in course and caliber. There are no significant atherosclerotic calcifications. There is no free intraperitoneal air. There is small amount of ascites. There is no enlarged abdominal pelvic lymph node. There is no small bowel wall thickening or dilatation. The appendix is normal. There is moderate scattered pericolonic wall thickening. There is mild colonic diverticulosis. Other: The imaged lower thorax is unremarkable. No acute osseous abnormality is evident. Impression: Cirrhosis with moderate splenomegaly, small amount of ascites, and extensive gastric / esophageal varices. Moderate scattered parker colonic wall thickening, with differential including portal colopathy and or colitis. Chronic pancreatitis with extensive extensive pancreatic calcifications, pancreatic parenchymal atrophy, and ductal dilatation. Punctate gallstone. Colonic diverticulosis. Medical Decision Making Findings Patient: TEOFILO GOMEZ Medical Record: [id number] [facility] : 1975, Age: 49 Sex: Female Location: ER Patient Status: [facility] ER Service Date/Time: 05/20/25839 Ordering Physician: MONICA ATKINS MD Exam: CT ABDOMEN PELVIS CLINICAL HISTORY: abd pain TECHNIQUE: CT of the abdomen and pelvis was performed with IV contrast. This exam was performed according to our departmental dose optimization program. Up-to-date CT equipment and radiation dose reduction techniques are utilized as appropriate. CTDI 7.4 DLP 384.6 COMPARISON: CT CT ABDOMEN PELVIS on DOS: 03/05/25, CT CT ABDOMEN PELVIS on DOS: 01/25/25, CT CT ABDOMEN PELVIS W/ IV CONTRAST on DOS: 12/06/24 FINDINGS: Abdomen/Pelvis: The adrenal glands, left kidney, and bladder are unremarkable. The uterus is abs ent. The liver is cirrhotic in morphology with nodular contour. The left hepatic lobe is elongated and extends to the left lateral abdomen. There are gastric and esophageal varices. The spleen is moderately enlarged, measuring 15.6 mid lung access. There is a small gallstone. There is a right renal cyst. There are extensive pancreatic calcifications with parenchymal atrophy and ductal dilatation measuring up to 8 mm. The abdominal aorta is normal in course and caliber. There are no significant atherosclerotic calcifications. There is no free intraperitoneal air. There is small amount of ascites. There is no enlarged abdominal pelvic lymph node. There is no small bowel wall thickening or dilatation. The appendix is normal. There is moderate scattered pericolonic wall thickening. There is mild colonic diverticulosis. Other: The imaged lower thorax is unremarkable. No acute osseous abnormality is evident. Impression: Cirrhosis with moderate splenomegaly, small amount of ascites, and extensive g astric / esophageal varices. Moderate scattered parker colonic wall thickening, with differential including portal colopathy and or colitis. Chronic pancreatitis with extensive extensive pancreatic calcifications, pancreatic parenchymal atrophy, and ductal dilatation. Punctate gallstone. Colonic diverticulosis. Patient presents with a history of GI bleeding that she reports over the last 3- 6 days the patient was found to be anemic hemoglobin was recently dropped from 11-8 the patient is heme positive from below with black stools the patient does have right-sided abdominal tenderness CT shows diffuse colonic wall thickening and some adjacent stranding in in the right hemicolon. The patient will be given Zosyn the patient has been discussed with the surgeon Dr. Zheng, the patient will be admitted to the hospitalist patient also has hypokalemia she will be started on IV potassium and she has been given pain medicine to include Tylenol as well as morphine. Prior hospitalizations have been reviewed all CT imaging were reviewed patient's labs were reviewed. Patient's pulse oximetry was interpreted as normal and adequate. The patient is traffic monitor specialist was interpreted as sinus rhythm. Prior hospitalizations were reviewed. The case was discussed with the hospitalist Departure Admitted to Inpatient Unit: yes, to hospitalist Impression: Primary Impression: Rectal bleeding Additional Impression: Diverticulitis Referrals: NO PRIMARY CARE PROVIDER (PCP) Prescriptions Lactobacillus Rhamnosus (Culturelle) 10 Billion Cell Capsule 1 CAP PO BID for 30 Days, #60 CAP 0 Refills Prov: CHOCHO VERA,BO LANE, RES 05/22/25 Metronidazole* (Flagyl*) 500 Mg Tablet 1 TAB PO Q12H for 7 Days, #14 TAB Prov: CHOCHO VERA,BO L[address], RES 05/22/25 Ciprofloxacin HCl (Ciprofloxacin HCl) 500 Mg Tab 1 TAB PO BID for 7 Days, #14 TAB Prov: BO BETTS, RES 05/22/25 Pantoprazole Sodium (PROTONIX tablet) 40 Mg Tablet.dr 40 MG PO BID for 30 Days, #60 TAB.SR Prov: BO BETTS, RES 05/22/25 Hydrocodone Bit/Acetaminophen (Hydrocodone-Apap 10-325 Tablet) 10mg/325mg Tablet 1 TAB PO QID PRN PRN for pain for 5 Days, #20 TAB Prov: CARLA SPRINGER MD 05/22/25 Signature Scribe Signature: No scribe Attestation: The note accurately reflects work and decisions made by me.Monica Atkins MD 05/22/25 19:21 MONICA ATKINS MD May 20, 2025 07:34
--- NOTE | 2025-05-20 07:46 | ELECTROCARDIOGRAPH REPORT ---
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
[2025-05-20] MEDS: acetaminophen 1,000mg/100ml IV 100 ML IV ONE (07:51)
[2025-05-20] MEDS ORDERED: iohexol 300mg/ml 100ml inj. ONE (07:51)
[2025-05-20 08:06] LABS: MEAN PLATELET VOLUME 9.8 FL (7.4-10.4); RED CELL DISTRIBUTION WIDTH 16.7 % (11.5-14.5)
[2025-05-20 08:08] LABS: INR 1.3 INR
[2025-05-20 08:13] LABS: CREATININE 0.76 MG/DL (0.40-0.90); TOTAL CARBON DIOXIDE 29.0 MMOL/L (24-32); eCRCL 71 ML/MIN; eGFR 81 ML/MIN
[2025-05-20] MEDS ORDERED: pantoprazole 40MG/NS 100ML BAG 100 ML IV ONE (08:15)
[2025-05-20] MEDS: pantoprazole 40MG/NS 100ML BAG 100 ML IV ONE (08:48)
--- NOTE | 2025-05-20 09:02 | RADIOLOGY REPORT ---
CLINICAL HISTORY: abd pain TECHNIQUE: CT of the abdomen and pelvis was performed with IV contrast. This exam was performed accor ding to our departmental dose optimization program. Up-to-date CT equipment and radiation dose reduct ion techniques are utilized as appropriate. CTDI 7.4 DLP 384.6 COMPARISON: CT CT ABDOMEN PELVIS on DOS: 03/05/25, CT CT ABDOMEN PELVIS on DOS: 01/25/25, CT CT ABDOMEN PELVIS W/ IV CONTRAST on DOS: 12/06/24 FINDINGS: Abdomen/Pelvis: The adrenal glands, left kidney, and bladder are unremarkable. The uterus is absent. The liver is cirrhotic in morphology with nodular contour. The left hepatic lobe is elongated and ext ends to the left lateral abdomen. There are gastric and esophageal varices. The spleen is moderately enlarged, measuring 15.6 mid lung access. There is a small gallstone. There is a right renal cyst. There are extensive pancreatic calcifications with parenchymal atrophy and ductal dilatation measurin g up to 8 mm. The abdominal aorta is normal in course and caliber. There are no significant atherosclerotic calcifi cations. There is no free intraperitoneal air. There is small amount of ascites. There is no enlarged abdominal pelvic lymph node. There is no small bowel wall thickening or dilatation. The appendix is normal. There is moderate scat tered pericolonic wall thickening. There is mild colonic diverticulosis. Other: The imaged lower thorax is unremarkable. No acute osseous abnormality is evident. Impression: Cirrhosis with moderate splenomegaly, small amount of ascites, and extensive gastric / esophageal maria guadalupe ices. Moderate scattered parker colonic wall thickening, with differential including portal colopathy and or c olitis. Chronic pancreatitis with extensive extensive pancreatic calcifications, pancreatic parenchymal atrop hy, and ductal dilatation. Punctate gallstone. Colonic diverticulosis.
[2025-05-20] MEDS: piperacillin/tazo 3.375gm/50ml 50 ML IV ONE (09:40)
[2025-05-20] MEDS: normal saline 1000ML IV soln IVB ONE (09:48)
[2025-05-20] MEDS ORDERED: potassium Cl 20 mEq SR tablet PO PRN ×2 (09:50)
[2025-05-20] MEDS ORDERED: magnesium sulf-water 4G/100mL 100 ML IV PRN (09:50)
[2025-05-20] MEDS ORDERED: HYDROcodone/acetaminophen 5mg/325mg tablet PO PRN (09:50)
[2025-05-20] MEDS ORDERED: magnesium hydroxide 30ml (MOM) UD suspension PO PRN (09:50)
[2025-05-20] MEDS ORDERED: mag hydrox/Alum hydrox/simeth 30ml oral suspension PO PRN (09:50)
[2025-05-20] MEDS ORDERED: ondansetron/PF 4mg/2ml inj IV PRN (09:50)
[2025-05-20] MEDS: normal saline 1000ml 1,000 ML IV SCH (10:09)
[2025-05-20] MEDS: potassium Cl 40MEQ/1/2NS 520ml 520 ML IV ONE (10:09)
[2025-05-20 10:18] LABS: OCCULT BLOOD STOOL POSITIVE (Neg)
[2025-05-20 11:01] LABS: BANDS% (MANUAL) 1.0 % (0-10); BASOPHILS % (MANUAL) 1.0 % (0-1); EOSINOPHILS % (MANUAL) 1.0 % (0-6); LYMPHOCYTES % (MANUAL) 23.0 % (21-51); MONOCYTES % (MANUAL) 18.0 % (2-12); NEUTROPHILS % (MANUAL) 53.0 % (42-75); REACTIVE LYMPHOCYTES % 3.0 % (0-0)
[2025-05-20 11:02] LABS: PLATELET ESTIMATE DECREASED
[2025-05-20] MEDS ORDERED: haloperidol lactate 5mg/ml inj IM PRN (14:10)
[2025-05-20] MEDS ORDERED: dextrose 50%-water 50ml dispensing syringe IV PRN ×3 (14:10→15:25)
--- NOTE | 2025-05-20 14:58 | HISTORY AND PHYSICAL-Residence ---
History & Physical Providers to CC Resident Creating Document: NICOLASAPAUCHARLEE ~ History of Present Illness Primary Medical Doctor: EJROME Reason for Admit\Complaint: Abdominal pain, melena, hematemesis History of Present Illness This is a 49-year-old female with past medical history of alcohol use disorder, alcoholic liver cirrhosis, type 2 diabetes who came to the ER with complaints of abdominal pain since last night. Patient is a poor historian. Abdominal pain was associated with chest pain, sweating, palpitation. She describes the pain as a dull ache, more in the lower quadrant, rates it 8/10, not associated bowel movements. No aggravating or relieving factors. No complaints of fever, burning micturition. She also complains of melena since 3 days, 1-2 episodes a day. Not associated with bright red blood or pain while passing stools. This was preceded by 3 days of hematemesis, which contains black vomitus, multiple episodes a day. No similar complaints in the past. No complaints of abdominal distention, leg swelling, bruises in the extremities, yellowish discoloration of the skin/sclera, confusion. She has been sober since 1 year. She relapsed 1 week ago during which time she was drinking half a pt of vodka every day for 3 days. Before that she used to drink half a gal of vodka every day for 30 years. She has been smoking 5 cigarettes a day every day since the age of 13. Does not report the use of any other drugs. Allergies: Coded Allergies: No Known Allergies (Unverified , 03/05/25) Home Medications Home Medications Active Vitamin B-1 (Thiamine HCl) 50 Mg Tablet 1 Tab PO DAILY 30 Days Multi Vitamin Daily (Multivitamin) 1 Each Tablet 1 Tab PO DAILY 30 Days Propranolol Hcl 10 Mg Tablet 1 Tab PO Q12H 30 Days Xifaxan (Rifaximin) 550 Mg Tablet 1 Tab PO Q12H 30 Days Cefdinir 300 Mg Capsule 1 Cap PO Q12H 5 Days Humalog (Insulin Lispro) 100 Unit/Ml Vial 1 Unit SQ CC 30 Days As per sliding scale with meals Lantus* (Insulin Glargine) 100 Unit/1 Ml Vial 20 Unit SQ HS 30 Days Long-acting insulin Lantus 20 units at bedtime Lactulose 10 Gram/15 Ml Solution 30 Ml PO Q12H 30 Days Lasix (Furosemide) 20 Mg Tablet 20 Mg PO DAILY 30 Days Spironolactone 25 Mg Tablet 25 Mg PO DAILY 30 Days Reported Trazodone HCl 50 Mg Tablet 1 Tab PO HS Gabapentin 100 Mg Capsule 1 Cap PO TID Atarax* (Hydroxyzine HCl) 25 Mg Tablet 1 Tab PO TID PRN Past Medical History Past Medical History Alcoholic use disorder Alcoholic liver cirrhosis Type 2 diabetes Past Surgical History Surgical History Comment Hysterectomy in 2014 Family History Family History: FH: Alzheimers disease FH: diabetes mellitus FH: diabetes mellitus FH: multiple sclerosis Past Social History Smoking: Cigarettes (Smokes 5 cigarettes a day since age of 13 years), Less than 1 pack/day (Smokes 5 cigarettes since the age of 13 years) Alcohol Use: Abuse Drug Use: None Lives with: Other (Homeless, lives with daughter sometimes) Lives In: Homeless Occupation: unemployed Domestic Violence: Neg ROS All Other Systems: Reviewed and Negative Constitutional: Reports: diaphoresis, malaise Cardiovascular: Reports: chest pain, palpitations Gastrointestinal: Reports: abdominal pain, nausea, vomiting, constipated, melena, hematemesis Genitourinary: Reports: no symptoms reported Female Genitalia: Reports: no reported symptoms Neurological: Reports: no symptoms reported Musculoskeletal: Reports: no symptoms reported Integumentary: Reports: no symptoms reported Allergic/Immunologic: Reports: no symptoms reported Hematologic/Lymphatic: Reports: no symptoms reported Endocrine: Reports: no symptoms reported Psychiatric: Reports: no symptoms reported Exam Vitals: Vital Signs Date Time Temp Pulse Resp B/P (MAP) Pulse Ox O2 Delivery O2 Flow Rate FiO2 05/20/25 14:02 16 05/20/25 13:56 98.3 73 100/59 (73) 97 Room Air 05/20/25 12:12 0 General: General: Well alert, well oriented, not confused, not agitated, not in acute distress, well cooperated during the physical. HEENT: Conjunctive are pink, sclerae clear, no icterus, pupil is equal in both sides, reactive to light, no ear discharge, no pharyngeal erythema or an edema. Neck: Supple, no JVD, no lymphadenopathy and thyromegaly. Chest: Equal air entry on both lungs, no additional sounds no rhonchi no wheezing at the moment. Cardiovascular: S1-S2 regular sinus rhythm and, regular rate, no gallops, no rubs, no murmurs Abdomen: Pain on superficial palpation, No abdominal distention, hyperactive bowel sounds, soft, nontender, no guarding, no rigidity Extremities: No obvious deformities, no pitting edema bilaterally, capillary refill intact, peripheral pulsations are intact on both sides Central Nervous System: No focal neurological deficits, no motor or sensory weakness in all 4 extremities, could move all 4 extremities, 2+ deep tendon reflexes, negative Babinski. Musculoskeletal: No joint swelling, deformities, inflammations, and no scoliosis and back tenderness Skin: Warm and dry. Diagnostic Data Last Recorded Lab Results: 05/20/25 0739 05/20/25 0739 Diagnostic Data: Laboratory Tests Test 05/20/25 07:39 Prothrombin Time 12.6 SECONDS (9.0-12.0) H INR International Normalized Ratio 1.3 INR Coagulation Comments Counseling Services Smoking & Tobacco Cessation: > 10 Minutes Advance Care Planning Advanced Care plannin - 30 Minutes (Full code) Additional Plan Assessment: This is a 49-year-old female with past medical history of alcohol use disorder, alcoholic liver cirrhosis, type 2 diabetes who came to the ER with complaints of abdominal pain since last night. Plan: Hematemesis and melena secondary to gastritis due to alcohol use disorder v/s esophageal varices 05/20/2025: 3 days of melena preceded by 3 days of hematemesis BP on the soft side with systolic in 100s. Normal heart rate. H&H 8.3, 24 WBC count 4.1 Keep the patient NPO, no IV fluids to avoid hemodilution, creatinine 0.76 Gastroenterology consulted, patient undergoing endoscopy today Started the patient on octreotide and Protonix drip PT 12.6 and INR 1.3 We will plan colonoscopy if needed. Compensated Alcoholic liver cirrhosis Child Gunter score; 7, class B Modified MELD score 15 points, estimated 6% three-month mortality Alkaline phosphatase 180, AST 110, ALT 56, albumin 2.9, globulin 3.6, procalcitonin 0.33 Lactic acid 1.6, lipase 8. CT abdomen and pelvis: Cirrhosis with moderate splenomegaly, small amount of ascites, and extensive gastric / esophageal varices. Moderate scattered parker colonic wall thickening, with differential including portal colopathy and or colitis. Chronic pancreatitis with extensive extensive pancreatic calcifications, pancreatic parenchymal atrophy, and ductal dilatation. Punctate gallstone. Colonic diverticulosis. Gastroenterology consulted Surgery Dr. Mckinney consulted in view of pancolonic wall thickening. We will continue oral medication furosemide 20 mg p.o. daily and spironolactone 25 mg p.o. daily once she is hemodynamically stable Continued her home medication rifaximin 550 mg p.o. b.i.d. and lactulose 15 mL p.o. b.i.d. Alcohol use disorder, homelessness Pending urine tox and ethyl alcohol level Moderate alcohol withdrawal and place Ordered nicotine 14 g patch Ordered social media specialist and substance abuse navigator Type 2 diabetes mellitus Glucose 190, hemoglobin A1c level pending Patient was on insulin at home Hypo/hyperglycemia protocol in place Hypokalemia Potassium levels of 2.[address] CODE STATUS: Full code DVT prophylaxis: SCDs Analgesia/sedation: Morphine/[place] Lines/tubes: PIV GI prophylaxis: Protonix drip Nutrition: NPO Prognosis: Guarded Disposition: Admission in ortho , plan for endoscopic today. Pau Baldwin MD PGY1, Internal Medicine. [facility] Date of Service: May 20, 2025 Billing Provider: CARLA SPRINGER MD Common Visit Codes: 41240-[id number] INP/OBS CARE (HIGH) Secondary Visit Codes: 56968-[id number] CARE PLAN 30 MINUTES PAU BALDWIN, RES May 20, 2025 14:58 CARLA SPRINGER MD May 22, 2025 07:45
[2025-05-20 15:00] LABS: MEAN PLATELET VOLUME 9.5 FL (7.4-10.4); RED CELL DISTRIBUTION WIDTH 16.5 % (11.5-14.5)
[2025-05-20 15:03] LABS: LEUKOCYTE ESTERASE ,URINE NEGATIVE (Neg); NITRITES, URINE NEGATIVE (Neg); OCCULT BLOOD,URINE NEGATIVE (Neg)
[2025-05-20 15:06] LABS: UA COLLECTION TYPE NON-SPECIFIED
[2025-05-20 15:14] LABS: SQUAMOUS EPITHELIAL CELL,UR MANY /LPF (FEW)
[2025-05-20] MEDS ORDERED: glucagon, human recombinant 1mg kit SUBCUT PRN (15:25)
[2025-05-20] MEDS ORDERED: DEXTROSE 15 GM of carb/4 tabs (each vial/BOTTLE has 4 tablets) PO PRN ×2 (15:25)
[2025-05-20 15:43] LABS: URINE AMPHETAMINE SCREEN NEGATIVE (Neg); URINE BARBITUATE SCREEN NEGATIVE (Neg); URINE BENZODIAZEPINES SCREEN NEGATIVE (Neg); URINE CANNABINOID SCREEN NEGATIVE (Neg); URINE COCAINE SCREEN NEGATIVE (Neg); URINE METHADONE SCREEN NEGATIVE (Neg); URINE OPIATE SCREEN POSITIVE (Neg); URINE PHENCYCLIDINE SCREEN NEGATIVE (Neg)
[2025-05-20] MEDS: INSULIN LISPRO 100 UNIT/ML INSULN.PEN MULTI-DOSE SQ SCH (17:00)
[2025-05-20] MEDS: pantoprazole 40MG/NS 100ML BAG 100 ML IV SCH (17:08)
[2025-05-20] MEDS: octreotide inj. 500 MCG in normal saline 100ml IV soln 97.5 ML IV SCH (18:39)
[2025-05-20] MEDS: K and/or MAG REPLACEMENT MC SCH (20:00)
[2025-05-20] MEDS: propranolol 10mg tablet PO SCH (20:00)
--- NOTE | 2025-05-20 20:17 | RADIOLOGY REPORT ---
CHEST RADIOGRAPH Indication: chest pain Technique: 1 view Comparison: DI CHEST,SINGLE VIEW on DOS: 03/05/25, DI CHEST,SINGLE VIEW on DOS: 01/25/25 FINDINGS: Lines and Tubes: None Lungs: No focal consolidation. Pleura: No effusion or pneumothorax. Cardiomediastinal contours: Unremarkable. Other: No acute osseous abnormality. IMPRESSION: 1. No acute cardiopulmonary abnormality.
[2025-05-20 20:36] LABS: RED CELL DISTRIBUTION WIDTH 16.6 % (11.5-14.5)
[2025-05-20 20:38] LABS: MEAN PLATELET VOLUME 9.3 FL (7.4-10.4)
[2025-05-20 20:55] LABS: CHOL/HDL RATIO 3.4 (0.00-4.99); LDL CHOLESTEROL 51 MG/DL (50-100)
[2025-05-20] MEDS: rifaximin 550mg tablet PO SCH (21:18)
[2025-05-20] MEDS: lactulose 20gm/30ml cup PO SCH (22:00)
[2025-05-20] MEDS: thiamine 100mg/ml 2ml inj. IV SCH (22:07)
[2025-05-21] MEDS: potassium Cl 40MEQ/1/2NS 520ml 520 ML IV ONE (00:34)
[2025-05-21] MEDS: potassium Cl 40MEQ/1/2NS 520ml 520 ML IV PRN (00:59)
[2025-05-21 03:16] LABS: MEAN PLATELET VOLUME 9.6 FL (7.4-10.4); RED CELL DISTRIBUTION WIDTH 16.4 % (11.5-14.5)
[2025-05-21 06:00] VITALS: BP 95/48; PULSE 92; RESP 16; TEMP 97.8; O2SAT 98
--- NOTE | 2025-05-21 07:03 | CONSULTATION ---
DATE OF CONSULTATION: 05/20/2025 DICTATING PHYSICIAN: Bora Alves MD REASON FOR CONSULTATION: Upper GI bleed. HISTORY OF PRESENT ILLNESS: The patient is 49-year-old, has a history of chronic heavy alcohol use, comes in because of abdominal pain and history of hematemesis for last three days prior to coming in and subsequent melena. She also complains of nausea and vomiting. She does feel significantly not feeling well and somewhat emotionally distraught. She has no past history of GI bleeding. She is hemodynamically stable. Hemoglobin was around 8 grams. PAST MEDICAL HISTORY: As above. FAMILY HISTORY: Noncontributory. PERSONAL HISTORY: Noncontributory. REVIEW OF SYSTEMS: A 12-point review of systems essentially same as history of present illness. PHYSICAL EXAMINATION: GENERAL: She is alert, awake, appears to be in no apparent distress, although emotionally unstable. She is crying. VITAL SIGNS: Normal. HEART AND LUNG: Normal. ABDOMEN: Soft. Nontender. No masses. No organomegaly. Bowel sounds are present. EXTREMITIES: Reveal no clubbing, cyanosis or edema. LABORATORY VALUES: Reviewed which revealed hemoglobin of around 8, MCV was 95, platelet count normal, coagulation profile normal. AST elevated than ALT twice, bilirubin 3 mg/dL range. CAT scan revealed pancreatic calcification suggestive of chronic pancreatitis and gastroesophageal varices and cirrhotic liver. IMPERSSION: The patient was admitted with hematemesis and melena, the patient does have liver cirrhosis secondary to alcohol use with portal hypertension as evidenced on the CAT scan by esophageal and gastric varices. The patient also has chronic pancreatitis as evidenced by pancreatic calcification, again secondary to chronic alcohol use. She is hemodynamically stable at this time. RECOMMENDATIONS: Continue current management. I will proceed with an endoscopy for diagnostic purposes and if necessary therapeutic maneuvers. The risks and benefits explained, understands and wishes to proceed. Further recommendations will be made after the endoscopy. Bora Alves MD TID: [id number] RECEIPT: [id number] GIFTY/DOMINGA/FRANKIE
[2025-05-21] MEDS: folic acid 1mg/0.2ml inj IV SCH (07:32)
[2025-05-21 08:00] VITALS: RESP 18; O2SAT 99
[2025-05-21] MEDS ORDERED: THIAMINE HCL PO SCH (08:00)
[2025-05-21 08:03] LABS: MEAN PLATELET VOLUME 9.7 FL (7.4-10.4); RED CELL DISTRIBUTION WIDTH 16.9 % (11.5-14.5)
[2025-05-21 08:20] LABS: CREATININE 0.65 MG/DL (0.40-0.90); TOTAL CARBON DIOXIDE 23.4 MMOL/L (24-32); eCRCL 84 ML/MIN; eGFR > 90 ML/MIN
[2025-05-21 08:53] LABS: BASOPHILS % (MANUAL) 1.0 % (0-1); EOSINOPHILS % (MANUAL) 5.0 % (0-6); LYMPHOCYTES % (MANUAL) 34.0 % (21-51); MONOCYTES % (MANUAL) 19.0 % (2-12); NEUTROPHILS % (MANUAL) 41.0 % (42-75)
[2025-05-21 08:54] LABS: PLATELET ESTIMATE DECREASED
[2025-05-21 10:00] VITALS: BP 94/62; PULSE 84; RESP 12; TEMP 98.8; O2SAT 98
[2025-05-21] MEDS: magnesium Cl slow-release 64mg tablet PO PRN (11:27)
[2025-05-21] MEDS: metroNIDAZOLE-Flagyl 500mg/NS 100 ML IV SCH (12:23)
[2025-05-21] MEDS: ciprofloxacin/D5W 200mg/100mL 100 ML IV SCH (12:30)
[2025-05-21 12:47] LABS: MEAN PLATELET VOLUME 10.1 FL (7.4-10.4); RED CELL DISTRIBUTION WIDTH 16.5 % (11.5-14.5)
--- NOTE | 2025-05-21 15:18 | PROGRESS NOTE- Residence ---
Progress Note - Resident Providers to CC Resident Creating Document: DENIA BALDWIN, CHARLEE ~ Central Line/PICC still needed: N\A Stone-Non Protocol Stone Indications Met/Not Met: F/C Indications Not Met Antibiotic Timeout Antibiotic Ordered?: Yes Subjective Patient examined bedside. She reports that her abdominal pain is better today, 5/10, dull aching, radiating to the back. She is able to tolerate full liquid diet. We will advance diet to 75 carb controlled diet. No more episodes of hematemesis or melena. She is having 2-3 bowel movements a day. Objective Vital Signs Date Time Temp Pulse Resp B/P (MAP) Pulse Ox O2 Delivery O2 Flow Rate FiO2 05/21/25 14:14 18 05/21/25 08:00 99 Room Air 05/21/25 07:34 92 05/21/25 06:00 97.8 95/48 (64) 05/20/25 16:46 6.0 Result Diagram: 05/22/25 0205 05/22/25 0205 General: Well alert, well oriented, not confused, not agitated, not in acute distress, well cooperated during the physical. HEENT: Conjunctive are pink, sclerae clear, no icterus, pupil is equal in both sides, reactive to light, no ear discharge, no pharyngeal erythema or an edema. Neck: Supple, no JVD, no lymphadenopathy and thyromegaly. Chest: Equal air entry on both lungs, no additional sounds no rhonchi no wheezing at the moment. Cardiovascular: S1-S2 regular sinus rhythm and, regular rate, no gallops, no rubs, no murmurs Abdomen: Pain on deep palpation, mild abdominal distention, hyperactive bowel sounds, soft, no guarding, no rigidity Extremities: No obvious deformities, no pitting edema bilaterally, capillary refill intact, peripheral pulsations are intact on both sides Central Nervous System: No focal neurological deficits, no motor or sensory weakness in all 4 extremities, could move all 4 extremities, 2+ deep tendon reflexes, negative Babinski. Musculoskeletal: No joint swelling, deformities, inflammations, and no scoliosis and back tenderness Skin: Warm and dry. Coagulation Studies Laboratory Tests Test 05/20/25 07:39 Prothrombin Time 12.6 SECONDS (9.0-12.0) H INR International Normalized Ratio 1.3 INR Coagulation Comments Assessment Assessment Assessment: This is a 49-year-old female with past medical history of alcohol use disorder, alcoholic liver cirrhosis, type 2 diabetes who came to the ER with complaints of abdominal pain, hematemesis and melena. Plan Plan Plan: Hematemesis and melena secondary to gastritis due to alcohol use disorder v/s esophageal varices 05/20/2025: 3 days of melena preceded by 3 days of hematemesis BP on the soft side with systolic in 100s. Normal heart rate. H&H 8.3, 24 WBC count 4.1 Keep the patient NPO, no IV fluids to avoid hemodilution, creatinine 0.76 Gastroenterology consulted, patient undergoing endoscopy today Started the patient on octreotide and Protonix drip PT 12.6 and INR 1.3 We will plan colonoscopy if needed. 05/21/2025: H&H stable at 8.1 and 23.9 BP on the soft side with systolic in 100s, normal heart rate Endoscopy reports show mild esophageal varices with no bleeding with reflects esophageal gastritis Stopped octreotide and Protonix drip, and started Protonix 40 mg p.o. b.i.d. Compensated Alcoholic liver cirrhosis Child Gunter score; 7, class B Modified MELD score 15 points, estimated 6% three-month mortality Pancytopenia with WBC 3.1, hemoglobin 8.4, platelet count 105 most likely due to alcohol abuse Alkaline phosphatase 180, AST 110, ALT 56, albumin 2.9, globulin 3.6, procalcitonin 0.33 Lactic acid 1.6, lipase 8. CT abdomen and pelvis: Cirrhosis with moderate splenomegaly, small amount of ascites, and extensive gastric / esophageal varices. Moderate scattered parker colonic wall thickening, with differential including portal colopathy and or colitis. Chronic pancreatitis with extensive extensive pancreatic calcifications, pancreatic parenchymal atrophy, and ductal dilatation. Punctate gallstone. Colonic diverticulosis. Gastroenterology consulted Surgery Dr. Mckinney consulted in view of pancolonic wall thickening. We will continue oral medication spironolactone 25 mg p.o. daily once she is hemodynamically stable. Furosemide held in view of soft blood pressure. Continued her home medication lactulose 15 mL p.o. b.i.d. Abdominal pain most likely due to chronic pancreatitis. History of binge drinking alcohol [address] findings showed Chronic pancreatitis with extensive extensive pancreatic calcifications, pancreatic parenchymal atrophy, and ductal dilatation. Lipase 8 which is expected in chronic pancreatitis. Patient is tolerating full liquid diet well, we will advance it to 75 g carb controlled diet. Pain management with morphine 1 g and [place] [address] finding of pancolonic wall thickening most likely due to colitis Preliminary blood culture no growth after 1 day. We will empirically treat her with ciprofloxacin 200 IV daily, metronidazole 500 b.i.d. 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 [facility] Addendum diabetes mellitus likely 2 to pancreatic insufficiency Date of Service: May 21, 2025 Billing Provider: CARLA SPRINGER MD Common Visit Codes: [id number] INP/OBS CARE(HIGH) DENIA BALDWIN, RES May 21, 2025 15:18 CARLA SPRINGER MD May 22, 2025 07:47
[2025-05-21 15:25] LABS: MEAN PLATELET VOLUME 9.3 FL (7.4-10.4); RED CELL DISTRIBUTION WIDTH 17.1 % (11.5-14.5)
[2025-05-21] MEDS: HYDROcodone/acetaminophen 10/325mg tab PO PRN (17:07)
[2025-05-21 18:00] VITALS: BP 92/61; PULSE 79; RESP 10; TEMP 98.1; O2SAT 100
[2025-05-21 19:16] LABS: MEAN PLATELET VOLUME 9.5 FL (7.4-10.4); RED CELL DISTRIBUTION WIDTH 16.5 % (11.5-14.5)
[2025-05-21 20:00] VITALS: RESP 10; O2SAT 100
[2025-05-21] MEDS: pantoprazole 40mg Tablet.DR PO SCH (20:12)
[2025-05-21 22:00] VITALS: BP 100/70; PULSE 70; RESP 14; TEMP 99.5; O2SAT 98
[2025-05-21 22:20] LABS: MEAN PLATELET VOLUME 9.2 FL (7.4-10.4); RED CELL DISTRIBUTION WIDTH 16.7 % (11.5-14.5)
[2025-05-22 02:13] LABS: MEAN PLATELET VOLUME 8.9 FL (7.4-10.4); RED CELL DISTRIBUTION WIDTH 16.7 % (11.5-14.5)
[2025-05-22 02:32] LABS: CREATININE 0.78 MG/DL (0.40-0.90); TOTAL CARBON DIOXIDE 23.6 MMOL/L (24-32); eCRCL 70 ML/MIN; eGFR 79 ML/MIN
[2025-05-22 02:41] LABS: EOSINOPHILS % (MANUAL) 5.0 % (0-6); LYMPHOCYTES % (MANUAL) 36.0 % (21-51); MONOCYTES % (MANUAL) 22.0 % (2-12); NEUTROPHILS % (MANUAL) 37.0 % (42-75)
[2025-05-22 02:42] LABS: PLATELET ESTIMATE DECREASED
[2025-05-22 05:00] VITALS: BP 81/46; PULSE 68; RESP 14; TEMP 97.6; O2SAT 97
[2025-05-22] MEDS: normal saline 250ml IV soln 250 ML IV ONE (05:38)
[2025-05-22 06:02] VITALS: BP 95/64; PULSE 67
[2025-05-22 07:11] VITALS: BP 81/56; PULSE 66
[2025-05-22] MEDS: normal saline 500ml IV soln 500 ML IV ONE (07:47)
[2025-05-22 08:00] VITALS: RESP 14; O2SAT 97
[2025-05-22 08:35] LABS: MEAN PLATELET VOLUME 9.9 FL (7.4-10.4); RED CELL DISTRIBUTION WIDTH 17.1 % (11.5-14.5)
[2025-05-22 10:00] VITALS: BP 82/47; PULSE 65; RESP 12; O2SAT 97
[2025-05-22] MEDS ORDERED: HYDR-3973 PO (11:14)
[2025-05-22] MEDS ORDERED: METR-159 PO (11:17)
[2025-05-22] MEDS ORDERED: PANT-47 PO (11:17)
[2025-05-22] MEDS ORDERED: LACT1CAP26 PO (11:17)
[2025-05-22] MEDS ORDERED: CIPR-458 PO (11:17)
[2025-05-22 11:33] LABS: MEAN PLATELET VOLUME 9.4 FL (7.4-10.4); RED CELL DISTRIBUTION WIDTH 16.7 % (11.5-14.5)
[2025-05-22 12:10] VITALS: RESP 15
[2025-05-22] MEDS ORDERED: propofol 10mg/ml 20ml vial IV ONE (12:32)
[2025-05-22] MEDS: magnesium sulf-water 2g/50mL 50 ML IV PRN (12:39)
--- NOTE | 2025-05-22 16:01 | DISCHARGE SUMMARY-Residence ---
Discharge Summary Providers to CC Resident Creating Document: WOOD WAITEBO, RES ~ Discharge Summary Admission Diagnosis: Abdominal pain Hospital Course DATE OF ADMISSION: 05/20/2025 DATE OF DISCHARGE: 05/22/2025 Discharge Diagnosis\Comment: Hematemesis and melena secondary to gastritis due to alcohol use disorder, esophageal varices Compensated Alcoholic liver cirrhosis Abdominal pain most likely due to chronic pancreatitis Colitis Alcohol use disorder, homelessness Type 2 diabetes mellitus Hypokalemia Operations\Procedures: EGD Consultants: GI, Dr. Teixeira Complications: None Condition on DC: Stable New Medications: Ciprofloxacin HCl (Ciprofloxacin HCl) 500 Mg Tab 1 TAB PO BID for 7 Days, #14 TAB Hydrocodone Bit/Acetaminophen (Hydrocodone-Apap 10-325 Tablet) 10mg/325mg Tablet 1 TAB PO QID PRN PRN for pain for 5 Days, #20 TAB Lactobacillus Rhamnosus (Culturelle) 10 Billion Cell Capsule 1 CAP PO BID for 30 Days, #60 CAP 0 Refills Metronidazole* (Flagyl*) 500 Mg Tablet 1 TAB PO Q12H for 7 Days, #14 TAB Pantoprazole Sodium (PROTONIX tablet) 40 Mg Tablet.dr 40 MG PO BID for 30 Days, #60 TAB.SR Continued Medications: Gabapentin (Gabapentin) 100 Mg Capsule 1 CAP PO TID Hydroxyzine Hcl* (Atarax*) 25 Mg Tablet 1 TAB PO TID PRN for anxiety Insulin Glargine,Hum.rec.anlog* (Lantus*) 100 Unit/1 Ml Vial 20 UNIT SQ HS for 30 Days, #2 VIAL Long-acting insulin Lantus 20 units at bedtime Insulin Lispro (Humalog) 100 Unit/Ml Vial 1 UNIT SQ CC for 30 Days, #1 VIAL As per sliding scale with meals Lactulose (Lactulose) 10 Gram/15 Ml Solution 30 ML PO Q12H for constipation for 30 Days, #500 ML 0 Refills Multivitamin (Multi Vitamin Daily) 1 Each Tablet 1 TAB PO DAILY for 30 Days, #30 TAB 0 Refills Propranolol Hcl (Propranolol Hcl) 10 Mg Tablet 1 TAB PO Q12H for 30 Days, #60 TAB 0 Refills Rifaximin (Xifaxan) 550 Mg Tablet 1 TAB PO Q12H for 30 Days, #60 TAB 0 Refills Spironolactone (Spironolactone) 25 Mg Tablet 25 MG PO DAILY for 30 Days, #30 TAB Thiamine HCl (Vitamin B-1) 50 Mg Tablet 1 TAB PO DAILY for 30 Days, #30 TAB 0 Refills Trazodone HCl (Trazodone HCl) 50 Mg Tablet 1 TAB PO HS Discontinued Medications: Cefdinir (Cefdinir) 300 Mg Capsule 1 CAP PO Q12H for 5 Days, #10 CAP 0 Refills Furosemide (Lasix) 20 Mg Tablet 20 MG PO DAILY for 30 Days, #30 TAB Discharge Summary: HPI: This is a 49-year-old female with past medical history of alcohol use disorder, alcoholic liver cirrhosis, type 2 diabetes who came to the ER with complaints of abdominal pain since last night. Patient is a poor historian. Abdominal pain was associated with chest pain, sweating, palpitation. She describes the pain as a dull ache, more in the lower quadrant, rates it 8/10, not associated bowel movements. No aggravating or relieving factors. No complaints of fever, burning micturition. She also complains of melena since 3 days, 1-2 episodes a day. Not associated with bright red blood or pain while passing stools. This was preceded by 3 days of hematemesis, which contains black vomitus, multiple episodes a day. No similar complaints in the past. No complaints of abdominal distention, leg swelling, bruises in the extremities, yellowish discoloration of the skin/sclera, confusion. She has been sober since 1 year. She relapsed 1 week ago during which time she was drinking half a pt of vodka every day for 3 days. Before that she used to drink half a gal of vodka every day for 30 years. She has been smoking 5 cigarettes a day every day since the age of 13. Does not report the use of any other drugs. Hospital course: 49 years old female patient came to the hospital with chief complaint of abdominal pain. The patient was admitted due to gastritis and upper gastrointestinal bleeding. Transit Planning Director, Dr. Teixeira was consulted. The patient underwent EGD on 05/20/2025. Mild esophageal varices was found. Initially the patient was treated with octreotide drip and Protonix drip. The patient was transition to Protonix b.i.d. hemoglobin and hematocrit was monitored during the hospitalization, the patient remained stable. Vitals within reference range. The patient did not have any other episode of melena since 05/21/2025. The patient was advanced to regular diet, the patient tolerated well. Due to her history of alcohol consumption the patient was also started on alcohol withdrawal protocol. The patient did not develop alcohol withdrawal symptoms. The patient remained hemodynamically stable. The patient will be discharged home. Discharge course: The patient remained hemodynamically stable. The patient will be discharged with the following instructions: Come back to the emergency department or call 911 if severe abdominal pain, chest pain, fever sensation, palpitations is evidenced. Follow-up your primary care physician within two weeks. Take ciprofloxacin one tablet of 500 mg every 12 hours for seven days. Take metronidazole one tablet of 100 mg every 12 hours for seven days. Take Protonix one tablet of 40 mg every 12 hours. Avoid NSAIDs like ibuprofen, naproxen. Continue your home medication. Physical exam: General: Well alert, well oriented, not confused, not agitated, not in acute distress, well cooperated during the physical. HEENT: Conjunctive are pink, sclerae clear, no icterus, pupil is equal in both sides, reactive to light, no ear discharge, no pharyngeal erythema or an edema. Neck: Supple, no JVD, no lymphadenopathy and thyromegaly. Chest: Equal air entry on both lungs, no additional sounds no rhonchi no wheezing at the moment. Cardiovascular: S1-S2 regular sinus rhythm and, regular rate, no gallops, no rubs, no murmurs Abdomen: A mild distention, nontender, non tense, presence of bowel sounds. Extremities: No obvious deformities, no pitting edema bilaterally, capillary refill intact, peripheral pulsations are intact on both sides Central Nervous System: No focal neurological deficits, no motor or sensory weakness in all 4 extremities, could move all 4 extremities, 2+ deep tendon reflexes, negative Babinski. Musculoskeletal: No joint swelling, deformities, inflammations, and no scoliosis and back tenderness Skin: Warm and dry. Vital Signs Date Time Temp Pulse Resp B/P (MAP) Pulse Ox O2 Delivery O2 Flow Rate FiO2 05/22/25 12:10 15 05/22/25 10:00 65 82/47 (59) 97 Room Air 05/22/25 05:00 97.6 05/20/25 16:46 6.0 Laboratory Tests Test 05/20/25 17:11 05/20/25 17:47 05/20/25 20:20 8/22/25 22:10 Ammonia 13 UMOL/L Glucometer 68 mg/dl 202 mg/dl White Blood Count 3.3 X10'3 Red Blood Count 2.17 X10'6 Hemoglobin 6.9 g/dl Hematocrit 20.8 % Mean Corpuscular Volume 96.0 FL Mean Corpuscular Hemoglobin 31.9 PG Mean Corpuscular Hemoglobin Concent 33.2 g/dL Red Cell Distribution Width 16.6 % Platelet Count 33 X10'3 Mean Platelet Volume 9.3 FL Hematology Comments Test 05/21/25 03:10 05/21/25 07:07 05/21/25 07:12 05/21/25 11:03 White Blood Count 3.1 X10'3 3.1 X10'3 Red Blood Count 2.54 X10'6 2.53 X10'6 Hemoglobin 7.9 g/dl 8.0 g/dl Hematocrit 23.9 % 23.9 % Mean Corpuscular Volume 94.1 FL 94.4 FL Mean Corpuscular Hemoglobin 31.2 PG 31.4 PG Mean Corpuscular Hemoglobin Concent 33.1 g/dL 33.3 g/dL Red Cell Distribution Width 16.4 % 16.9 % Platelet Count 92 X10'3 82 X10'3 Mean Platelet Volume 9.6 FL 9.7 FL Hematology Comments Neutrophils (%) (Auto) % Lymphocytes (%) (Auto) % Monocytes (%) (Auto) % Eosinophils (%) (Auto) % Basophils (%) (Auto) % Neutrophils # (Auto) X10'3 Lymphocytes # (Auto) X10'3 Monocytes # (Auto) X10'3 Eosinophils # (Auto) X10'3 Basophils # (Auto) X10'3 CBC Comment Differential Total Cells Counted 100 Neutrophils % (Manual) 41.0 % Lymphocytes % (Manual) 34.0 % Monocytes % (Manual) 19.0 % Eosinophils % (Manual) 5.0 % Basophils % (Manual) 1.0 % Platelet Estimate Decreased Red Blood Cell Morphology Perf Polychromasia Few Basophilic Stippling Anisocytosis 1+ Tear Drop Cells Few Schistocytes Few Sodium Level 137 MMOL/L Potassium Level 3.7 MMOL/L Chloride Level 108 MMOL/L Carbon Dioxide Level 23.4 MMOL/L Anion Gap 6 Blood Urea Nitrogen 7 MG/DL Creatinine 0.65 MG/DL Estimated GFR/1.73 m2 > 90 ML/MIN BUN/Creatinine Ratio 10.8 Glucose Level 69 MG/DL Calcium Level 7.1 MG/DL Magnesium Level 1.3 MG/DL Total Bilirubin 2.6 MG/DL Aspartate Amino Transf (AST/SGOT) 63 U/L Alanine Aminotransferase (ALT/SGPT) 37 U/L Alkaline Phosphatase 133 IU/L Total Protein 5.2 G/DL Albumin 2.2 G/DL Globulin 3.0 G/DL Albumin/Globulin Ratio 0.7 Chemistry Comments Glucometer 64 mg/dl 194 mg/dl Test 05/21/25 11:25 05/21/25 12:25 05/21/25 14:47 05/21/25 17:09 White Blood Count 3.1 X10'3 3.2 X10'3 Red Blood Count 2.65 X10'6 2.56 X10'6 Hemoglobin 8.4 g/dl 8.1 g/dl Hematocrit 24.9 % 24.0 % Mean Corpuscular Volume 94.0 FL 93.5 FL Mean Corpuscular Hemoglobin 31.8 PG 31.5 PG Mean Corpuscular Hemoglobin Concent 33.8 g/dL 33.7 g/dL Red Cell Distribution Width 16.5 % 17.1 % Platelet Count 105 X10'3 102 X10'3 Mean Platelet Volume 10.1 FL 9.3 FL Hematology Comments Glucometer 227 mg/dl 158 mg/dl Test 05/21/25 18:10 05/21/25 20:56 05/21/25 22:11 05/22/25 02:05 White Blood Count 3.1 X10'3 3.1 X10'3 3.6 X10'3 Red Blood Count 2.62 X10'6 2.62 X10'6 2.64 X10'6 Hemoglobin 8.3 g/dl 8.2 g/dl 8.3 g/dl Hematocrit 24.3 % 24.3 % 24.3 % Mean Corpuscular Volume 92.6 FL 92.6 FL 92.1 FL Mean Corpuscular Hemoglobin 31.6 PG 31.2 PG 31.3 PG Mean Corpuscular Hemoglobin Concent 34.1 g/dL 33.7 g/dL 34.0 g/dL Red Cell Distribution Width 16.5 % 16.7 % 16.7 % Platelet Count 100 X10'3 102 X10'3 108 X10'3 Mean Platelet Volume 9.5 FL 9.2 FL 8.9 FL Hematology Comments Glucometer 235 mg/dl Neutrophils (%) (Auto) 35.3 % Lymphocytes (%) (Auto) 33.6 % Monocytes (%) (Auto) 27.0 % Eosinophils (%) (Auto) 2.9 % Basophils (%) (Auto) 1.2 % Neutrophils # (Auto) 1.3 X10'3 Lymphocytes # (Auto) 1.2 X10'3 Monocytes # (Auto) 1.0 X10'3 Eosinophils # (Auto) 0.1 X10'3 Basophils # (Auto) 0.0 X10'3 CBC Comment Differential Total Cells Counted 100 Neutrophils % (Manual) 37.0 % Lymphocytes % (Manual) 36.0 % Monocytes % (Manual) 22.0 % Eosinophils % (Manual) 5.0 % Platelet Estimate Decreased Red Blood Cell Morphology Perf Basophilic Stippling Anisocytosis 1+ Sodium Level 139 MMOL/L Potassium Level 3.6 MMOL/L Chloride Level 108 MMOL/L Carbon Dioxide Level 23.6 MMOL/L Anion Gap 7 Blood Urea Nitrogen 6 MG/DL Creatinine 0.78 MG/DL Estimated GFR/1.73 m2 79 ML/MIN BUN/Creatinine Ratio 7.7 Glucose Level 154 MG/DL Calcium Level 8.0 MG/DL Magnesium Level 1.3 MG/DL Total Bilirubin 1.4 MG/DL Aspartate Amino Transf (AST/SGOT) 54 U/L Alanine Aminotransferase (ALT/SGPT) 35 U/L Alkaline Phosphatase 136 IU/L Total Protein 5.3 G/DL Albumin 2.2 G/DL Globulin 3.1 G/DL Albumin/Globulin Ratio 0.7 Chemistry Comments Test 05/22/25 06:24 05/22/25 07:19 05/22/25 10:59 05/22/25 11:09 White Blood Count 3.1 X10'3 2.7 X10'3 Red Blood Count 2.50 X10'6 2.40 X10'6 Hemoglobin 7.9 g/dl 7.6 g/dl Hematocrit 23.7 % 22.6 % Mean Corpuscular Volume 94.7 FL 94.1 FL Mean Corpuscular Hemoglobin 31.5 PG 31.5 PG Mean Corpuscular Hemoglobin Concent 33.3 g/dL 33.5 g/dL Red Cell Distribution Width 17.1 % 16.7 % Platelet Count 108 X10'3 105 X10'3 Mean Platelet Volume 9.9 FL 9.4 FL Hematology Comments Glucometer 189 mg/dl 201 mg/dl Magnesium Level 1.2 MG/DL Chest x-ray: No acute cardiopulmonary abnormality. Abdomen/pelvis CT scan: Cirrhosis with moderate splenomegaly, small amount of ascites, and extensive gastric / esophageal varices. Moderate scattered parker colonic wall thickening, with differential including portal colopathy and or colitis. Chronic pancreatitis with extensive extensive pancreatic calcifications, pancreatic parenchymal atrophy, and ductal dilatation. Punctate gallstone. Colonic diverticulosis. *Problems/Diagnosis: (1) Alcohol use disorder Status: Acute (2) Upper gastrointestinal bleeding Status: Acute (3) Esophageal varices Status: Acute (4) Gastritis Status: Acute Total Time Spent on D/C: > 30 Minutes Date of Service: May 22, 2025 Billing Provider: CARLA SPRINGER MD Common Visit Codes: [id number] DISCH DAY >30min BO BETTS, RES May 22, 2025 15:59 CARLA SPRINGER MD May 23, 2025 06:15
--- NOTE | 2025-05-24 15:47 | PATHOLOGY REPORT ---
[facility] [address] [place] [address] SURGICAL PATHOLOGY REPORT CaseNumber: [id number] Surgeon:Bora Alves M.D. CLINICAL INFORMATION CLINICAL INFORMATION: GI bleed. DIAGNOSIS DIAGNOSIS: STOMACH, ANTRUM; BIOPSY - MILD CHRONIC INACTIVE GASTRITIS. - NEGATIVE FOR INTESTINAL METAPLASIA. - NEGATIVE FOR H. PYLORI (CONFIRMED BY IMMUNOSTAIN). MICROSCOPIC DESCRIPTION MICROSCOPIC DESCRIPTION: A single H&E stained slide showing multiple levels of gastric mostly antral- type mucosa is reviewed. There is a mild focal expansion of the lamina propria between glands by plas ma cells. There is no evidence of dysplasia, intestinal metaplasia, or Helicobacter pylori. Alcian blue special stain is performed on the specimen. There is no intestinal metaplasia identified on the slide. H. pylori IHC stain is performed on the specimen. There are no H. pylori organisms identified on the slide. GROSS DESCRIPTION GROSS DESCRIPTION: Received in a container of formalin labeled with the patient's name, number, and " antrum biopsy" is a 0.3 cm piece of huber tissue. The specimen is entirely submitted as A1. The time a t which the specimen was removed was 161. The time at which the specimen was placed in formalin was 161. Electronically signed by: Ralph Trejo, 05/24/2025 3:18:00 PM
== END 2025-05-22 14:37 | disposition home or self-care (01) | DRG 241 ==
LOC: ER 07:22 → ED HOLD 09:51 → ORTHO 4S 13:48
PROVIDERS: ADMIT Internal Medicine; ATTEND Internal Medicine
PROC: BW211ZZ Computerized Tomography (CT Scan) of Abdomen and Pelvis using Low Osmolar Contrast (ICD-10-PCS; 2025-05-20)
PROC: 0DB68ZX Excision of Stomach, Via Natural or Artificial Opening Endoscopic, Diagnostic (ICD-10-PCS; 2025-05-20)
PROC: 30233N1 Transfusion of Nonautologous Red Blood Cells into Peripheral Vein, Percutaneous Approach (ICD-10-PCS; principal; 2025-05-20 15:53)
DX: K29.21 Alcoholic gastritis with bleeding (principal); I85.11 Secondary esophageal varices with bleeding; D61.818 Other pancytopenia; K70.31 Alcoholic cirrhosis of liver with ascites; K86.1 Other chronic pancreatitis; E11.69 Type 2 diabetes mellitus with other specified complication; K52.9 Noninfective gastroenteritis and colitis, unspecified; K57.32 Diverticulitis of large intestine without perforation or abscess without bleeding; R16.1 Splenomegaly, not elsewhere classified; K80.20 Calculus of gallbladder without cholecystitis without obstruction; E87.6 Hypokalemia; F10.939 Alcohol use, unspecified with withdrawal, unspecified; Y90.9 Presence of alcohol in blood, level not specified; K76.6 Portal hypertension; K31.89 Other diseases of stomach and duodenum; Z79.899 Other long term (current) drug therapy; Z59.00 Homelessness unspecified
CPT/HCPCS: 36415; 36430; 43239; 71045; 74177; 80053; 80061; 80305; 80320; 81001; 82140; 82272; 82948; 83036; 83605; 83690; 83735; 84145; 85007; 85025; 85027; 85610; 86885; 86900; 86901; 86920; 87040; 87081; 93005; 96365; 96367; 96375; 99285; A4620; G0378; J0131; J0744; J1815; J2270; J2354; J2470; J2543; J2704; J3411; J3480; J3490; J7030; J7040; J7050; J7120; P9016; Q9967

== ENCOUNTER 2025-07-27 02:17 | Emergency (ER) | payer MEDICAID ==
[~2025-07-27] VITALS: Ht 165.1 cm; Wt 56.0 kg
[~2025-07-27 02:17] MED LIST changes: -CEFD300C3 PO; -FURO-150 PO; +LACT1CAP26 PO; +PANT-47 PO
--- NOTE | 2025-07-27 02:28 | Physician Documentation ---
History of Present Illness ~ Chief Complaint: Hypoglycemia Stated Complaint: LOW BLOOD SUGAR Time Seen by MD: 02:27 Primary Medical Doctor: ADRIANRuel HPI Patient presents to the emergency room with hypoglycemia. She has had [facility] that has reported some low sugars over the past few nights. She gave herself with the usual dose tonight and then became hypoglycemic. She had denies any fevers cough cold congestion abdominal pain or dysuria. Medication Reconciliation Allergies: Coded Allergies: No Known Allergies (Unverified , 03/05/25) Scheduled Gabapentin (Gabapentin), 1 CAP PO TID, (Reported) Insulin Glargine,Hum.rec.anlog* (Lantus*), 20 UNIT SQ HS Insulin Lispro (Humalog), 1 UNIT SQ CC Lactobacillus Rhamnosus (Culturelle), 1 CAP PO BID Lactulose (Lactulose), 30 ML PO Q12H Multivitamin (Multi Vitamin Daily), 1 TAB PO DAILY Pantoprazole Sodium (PROTONIX tablet), 40 MG PO BID Propranolol Hcl (Propranolol Hcl), 1 TAB PO Q12H Rifaximin (Xifaxan), 1 TAB PO Q12H Spironolactone (Spironolactone), 25 MG PO DAILY Thiamine HCl (Vitamin B-1), 1 TAB PO DAILY Trazodone HCl (Trazodone HCl), 1 TAB PO HS, (Reported) Scheduled PRN Hydroxyzine Hcl* (Atarax*), 1 TAB PO TID PRN for anxiety, (Reported) Past Medical History Past Medical History: Cirrohsis Patient History: FH: Alzheimers disease FH: diabetes mellitus FH: diabetes mellitus FH: multiple sclerosis Alcohol Use: Abuse Drug Use: none Lives with: Other Lives In: Homeless Occupation: unemployed Review of Systems ROS All review of systems negative except as per HPI Physical Exam Physical Exam General: Patient is awake, alert, oriented x4 in no acute distress. Slow to respond Head: Normocephalic and atraumatic. Eyes: Conjunctival normal. EOMI. PERRL. ENT: Mucous membranes moist. Neck: Supple, trachea is midline. Chest: Clear to auscultation bilaterally without rales, rhonchi, or wheezes. There is no accessory muscle use or retractions. Cardiac: RRR without murmurs, gallops, or rubs. Abd: Soft, nondistended, nontender, with normoactive bowel sounds. No guarding, rebound, or rigidity. Progress Results/Orders Results/Orders Orders - JOSE FLORES MD Chest,Single View (07/27/25 02:27) Completed Orders - JOSE FLORES MD Dextrose 50%-Water (Dextrose 50%-Water S (07/27/25 02:30) Electrocardiogram (07/27/25 02:27) Cbc/Diff (07/27/25 02:27) MG (07/27/25 02:27) Chest,Single View (07/27/25 02:27) Procalcitonin (07/27/25 02:27) BMP (07/27/25 02:27) Normal Saline 1000ml (0.9% Sodium Chlori (07/27/25 02:35) Ethanol (07/27/25 02:33) LA (07/27/25 02:37) Man Diff (07/27/25 02:45) Normal Saline 1000ml (0.9% Sodium Chlori (07/27/25 04:30) Vital Signs 07/27/25 07/27/25 07/27/25 07/27/25 02:22 02:22 02:30 03:00 Temp 97.8 97.8 97.8 Pulse 72 72 73 Resp 15 15 14 12 B/P (MAP) 89/56 (67) 89/56 101/60 (74) Pulse Ox 100 100 100 07/27/25 07/27/25 07/27/25 04:00 05:28 06:07 Temp 97.8 97.8 97.8 Pulse 71 90 99 Resp 10 20 14 B/P (MAP) 90/57 (68) 85/48 (60) Pulse Ox 99 97 96 Laboratory Tests Test 07/27/25 02:28 07/27/25 02:45 07/27/25 05:33 Glucometer 74 70 White Blood Count 2.9 L Red Blood Count 2.84 L Hemoglobin 8.2 L Hematocrit 24.6 L Mean Corpuscular Volume 86.5 Mean Corpuscular Hemoglobin 28.7 Mean Corpuscular Hemoglobin Concent 33.2 Red Cell Distribution Width 18.0 H Platelet Count 96 L Mean Platelet Volume 8.9 Neutrophils (%) (Auto) 38.0 L Lymphocytes (%) (Auto) 45.6 Monocytes (%) (Auto) 13.7 H Eosinophils (%) (Auto) 1.9 Basophils (%) (Auto) 0.8 Neutrophils # (Auto) 1.1 L Lymphocytes # (Auto) 1.3 Monocytes # (Auto) 0.4 Eosinophils # (Auto) 0.1 Basophils # (Auto) 0.0 CBC Comment Differential Total Cells Counted 100 Neutrophils % (Manual) 48.0 Lymphocytes % (Manual) 40.0 Monocytes % (Manual) 10.0 Eosinophils % (Manual) 2.0 Platelet Estimate Decreased Red Blood Cell Morphology Perf Basophilic Stippling Anisocytosis 1+ Tear Drop Cells Few Sodium Level 138 Potassium Level 4.1 Chloride Level 109 H Carbon Dioxide Level 25.9 Anion Gap 3 L Blood Urea Nitrogen 12 Creatinine 0.98 H Estimated GFR/1.73 m2 60 BUN/Creatinine Ratio 12.2 Glucose Level 241 H Lactic Acid Level 0.9 Calcium Level 7.4 L Magnesium Level 1.6 Albumin 2.0 L Procalcitonin < 0.05 Chemistry Comments Ethyl Alcohol Level < 10 Medical Decision Making Additional information obtaine: old records Findings Patient presented to the emergency room with hypoglycemia. Differentials include but are not limited to adverse medication reaction, infectious process, change in diet, suicidal ideation. Patient declined suicidal ideation. Despite having several blood sugars that has been reading low in the night patient has failed to decrease her insulin administration. We will decrease her insulin administration with instructions take frequent blood sugar readings and to follow up with a doctor. Patient monitored for a time. Blood sugars remained stable and after the last blood sugar reading we have started feeding her and I believe she will do well. Differential Dx:Considerations: Include: CVA, Encephalopathy, Hepatic disease, Hypoglycemia, Seizure, Sepsis, Alcohol induced, Drug overdose induced, Decr. judy. intake induced, Insulin induced, oral hypoglycemic induced, Other Departure Disposition: 01 HOME / SELF CARE / HOMELESS Impression: Primary Impression: Hypoglycemia Condition: Improved Discharge Instructions: Glucose Monitoring Additional Instructions: You have had a few nights in a row with low blood sugars. That has time to change the amount of insulin your administering. Half the insulin your administering. Take frequent blood sugar readings and follow up with your doctor for adjustments. Referrals: NO PRIMARY CARE PROVIDER (PCP) Signature Scribe Signature: No scribe Attestation: The note accurately reflects work and decisions made by me.Jose Flores MD 07/27/25 05:38 JOSE FLORES MD Jul 27, 2025 02:28
[2025-07-27] MEDS: dextrose 50%-water 50ml dispensing syringe IV ONE (02:33)
--- NOTE | 2025-07-27 02:39 | ELECTROCARDIOGRAPH REPORT ---
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
[2025-07-27] MEDS: normal saline 1000ml 1,000 ML IV ONE (02:49)
--- NOTE | 2025-07-27 03:01 | RADIOLOGY REPORT ---
CHEST RADIOGRAPH Indication: SEPSIS Technique: Single frontal view of the chest was obtained COMPARISON: DI CHEST,SINGLE VIEW on DOS: 05/20/25, DI CHEST,SINGLE VIEW on DOS: 03/05/25, DI CHEST,SINGLE VIEW on DOS: 01/25/25 FINDINGS: Lines and Tubes: None Lungs: Clear Pleura: No effusion. No pneumothorax. Cardiomediastinal contours: Unremarkable Bones: Unremarkable IMPRESSION: 1. No acute disease.
[2025-07-27 03:08] LABS: MEAN PLATELET VOLUME 8.9 FL (7.4-10.4); RED CELL DISTRIBUTION WIDTH 18.0 % (11.5-14.5)
[2025-07-27 03:10] LABS: CREATININE 0.98 MG/DL (0.40-0.90); TOTAL CARBON DIOXIDE 25.9 MMOL/L (24-32); eCRCL 61 ML/MIN; eGFR 60 ML/MIN
[2025-07-27 03:14] LABS: ETHANOL < 10 MG/DL (<10)
[2025-07-27 03:57] LABS: EOSINOPHILS % (MANUAL) 2.0 % (0-6); LYMPHOCYTES % (MANUAL) 40.0 % (21-51); MONOCYTES % (MANUAL) 10.0 % (2-12); NEUTROPHILS % (MANUAL) 48.0 % (42-75); PLATELET ESTIMATE DECREASED
[2025-07-27] MEDS ORDERED: normal saline 1000ml 1,000 ML IV ONE (04:30)
[2025-07-27 05:28] VITALS: BP 85/48
[2025-07-27 06:07] VITALS: PULSE 99; RESP 14; TEMP 97.8; O2SAT 96
== END 2025-07-27 06:10 | disposition home or self-care (01) ==
LOC: ER 02:18
DX: E11.649 Type 2 diabetes mellitus with hypoglycemia without coma (principal); Z59.00 Homelessness unspecified; Z56.0 Unemployment, unspecified; Z79.899 Other long term (current) drug therapy
CPT/HCPCS: 36415; 71045; 80048; 80320; 82948; 83605; 83735; 84145; 85007; 85025; 93005; 96361; 96374; 99285; J3490; J7030